=== PATIENT | female | born 1955 | race Caucasian/White ===

== ENCOUNTER 2023-02-26 07:57 | Outpatient (RCR) | payer MEDICARE, SELFPAY ==
[2023-02-24 11:13] LABS: Calcium 8.6 mg/dL (8.5-10.1); Estimated GFR (African America 56 (>=60); Estimated GFR (Non-African Ame 46 (>=60)
[2023-02-26 08:57] VITALS: BP 156/88; PULSE 79; RESP 16; TEMP 38.2; O2SAT 93
[2023-02-26] MEDS: DENOSUMAB 60 MG/ML SYRINGE SQ (09:13)
--- NOTE | 2023-02-26 09:35 | PC.NURSE ---
0857: Pt. to [facility] amb. Seated in recliner. VSS. Pt. given education regarding Prolia. Questions addressed. 0913: Pt medicated with Prolia as directed to right arm. No bleeding to site. Pt. tolerates without c/o. 0935: Pt. without s&s of adverse reaction. D/c'd to home.
== END 2023-03-07 23:59 | disposition home or self-care (01) ==
LOC: INF 07:57
PROVIDERS: PCP Family Medicine; Visit Provider Family Medicine
DX: M81.0 Age-related osteoporosis without current pathological fracture (principal)
CPT/HCPCS: 36415; 82310; 82565; 96372; J0897

== ENCOUNTER 2023-08-20 07:36 | Outpatient (RCR) | payer MEDICARE, SELFPAY ==
[2023-08-19 08:26] LABS: Calcium 8.5 mg/dL (8.5-10.1); Estimated GFR (African America >60 (>=60); Estimated GFR (Non-African Ame 53 (>=60)
[2023-08-20 09:55] VITALS: BP 161/89; PULSE 72; RESP 18; O2SAT 98
[2023-08-20] MEDS: DENOSUMAB 60 MG/ML SYRINGE SUBQ (09:56)
--- NOTE | 2023-08-20 10:10 | PC.NURSE ---
Pt is here for prolia injection. vitals obtained and stable, she denies any complaints today. She tolerated injection well without complications and was discharged ambulatory.
== END 2023-08-20 10:23 | disposition home or self-care (01) ==
LOC: INF 07:36
PROVIDERS: PCP Family Medicine; Visit Provider Family Medicine
DX: M81.0 Age-related osteoporosis without current pathological fracture (principal)
CPT/HCPCS: 36415; 82310; 82565; 96372; J0897

== ENCOUNTER 2023-09-25 08:19 | Outpatient (OUT) | payer MEDICARE, SELFPAY ==
--- OUTSIDE RECORDS SUMMARY | 2023-09-25 08:25 | XMS_ITS | CCD ---
Author Organization [facility] Care Team Providers Care Assistive Technology Trainer Name Role Phone OLGA ., DR ISRAEL Primary Care Unavailable HOY ., DR ISRAEL Admitting Unavailable HOY ., DR ISRAEL Attending Unavailable HOY ., DR ISRAEL Consulting Unavailable ZIEBER, DR RUFINO Holcomb Consulting Unavailable HOY ., DR ISRAEL Primary Care Unavailable HOY ., DR ISRAEL Admitting Unavailable HOY ., DR ISRAEL Attending Unavailable HOY ., DR ISRAEL Consulting Unavailable Problems Problem Classification Problem Date Documented Da te Episodic/Chronic Deficiency and other anemia (1 source) Anemia, unspecified; Translations: [ANEMIA UNSPECIFIED] Onset: 07-28-2022 Episodic Diabetes mellitus without complication (1 source) Other abnormal glucose; Translations: [OTHER ABNORMAL GLUCOSE] Onset: 07-28-2022 Episodic Disorders of lipid metabolism (5 sources) Pure hypercholesterolemi a, unspecified; Translations: [Hyperlipidemia, unspecified] Onset: 07-28-2022 Chronic Headache; including migraine (5 sources) Migraine, unspecified, not intractable, without status migrainosus; Translations: [MIGRAINE UNS NOT INTRACT W/O SM] Onset: 07-24-2022 Chronic Osteoporosis (1 source) Age-related osteoporosis without current pathological fracture; Translations: [AGE-REL OSTEOPOR W/O CURR PATH FX] Onset: 08-03-2022 Chronic Other screening for suspected conditions (not mental disorders or infectious disease) (1 source) Encounter for screening mammogram for malignant neoplasm of breast; Translations: [ENC SCR MAMMO MALIG NEOPLASM BREAST] Onset: 08-03-2022 Episodic Results Test Name Value Interpretation Reference Range Facility MG MAMM SCREEN 3D SHERIE CADon 07-30-2022 MG MAMM SCREEN 3D SHERIE CAD Patient: JASON ROGER. Exam Date: 07/30/2022 : 1955 Gender:F Ordering : DR LINDY ESPINOZA . Admission #: [id number] Family : Order #: [id number] CLICK HERE TO VIEW EXAM RADIOLOGY REPORT PROCEDURE: MAMMOGRAM SCREENING 3D BILATERAL CAD COMPARISON: MG MAMM SHERIE SCRN W CAD DIG, 12/31/2015. INDICATIONS: Screening mammography Calculator Name NCI Breast Cancer Risk Assessment Tool 5 Year Breast Cancer Risk 1.40% Lifetime Breast Cancer Risk 4.80% Personal Breast Cancer No Personal Ovarian Cancer No Treatments None Family Cancers None LOCATION: [facility] BREAST COMPOSITION: Heterogeneously dense,which may obscure small masses. FINDINGS: DIAGNOSTIC CATEGORY 2--BENIGN FINDING: RIGHT BREAST: No significant suspicious finding. No significant change has occurred. LEFT BREAST: No significant suspicious finding. Scattered benign-appearing lymph nodes are present. No significant change has occurred. RECOMMENDATIONS: ROUTINE MAMMOGRAM AND CLINICAL EVALUATION IN 12 MONTHS. PLEASE NOTE: A NORMAL MAMMOGRAM DOES NOT EXCLUDE THE POSSIBILITY OF BREAST CANCER. A CLINICALLY SUSPICIOUS PALPABLE LUMP SHOULD BE BIOPSIED. Dictated by: Rufino Vergara M.D. on 07/31/2022 at 13:30 Approved by: Rufino Vergara M.D. on 07/31/2022 at 13:32 Normal [facility] XR DEXA BONE DENSITYon 07-30 XR DEXA BONE DENSITY EXAMINATION: XR DEX A BONE DENSITY, 07/30/2022 10:52 AM EST HISTORY: Screening for osteoporosis COMPARISON: DEXA bone densitometry 11/15/2019 TECHNIQUE: Dual-energy X-ray absorptiometry (DEXA) bone density study performed for the axial skeleton. FINDINGS: SPINE ANALYSIS: Average bone mineral density is 0.993 g/cm2. T-score (standard deviation relative to young adult mean): -1.7 . +3.2% change since prior study. HIP ANALYSIS: Lowest bone mineral density is within the right femoral neck, 0.697 g/cm2. T-score (standard deviation relative to young adult mean): -2.5 . -1.1% change since prior study. IMPRESSION: World [employer] Classification: Osteoporosis - High Fracture Risk Electronically authenticated by: RUFINO VERGARA Date: 2022-07-30 16:12 Normal [facility] CBC AUTO DIFFon 07-24-2022 BASO # 0.1 103/ul Normal 0.0-0.1 [facility] Comment on above: Performed By: #### C BC #### [facility] [address] [address] [address] Jeri Chase Basophils/100 WBC (Bld) 0.8 % Normal 0.2-2.0 [facility] Comment on above: Performed By: #### C BC #### [facility] [address] [place] [address] Dr. Jeri Chase EO # 0.1 103/ul Normal 0.0-0.7 [facility] Comment on above: Performed By: #### C BC #### [facility] [address] [place] [address] Dr. Jeri Chase Eosinophils/100 WBC (Bld) 2.3 % Normal 0.9-7.0 [facility] Comment on above: Performed By: #### C BC #### [facility] [address] [place] [address] Dr. Jeri Chase Erythrocyte distribution width (RBC) [Ratio] 12.3 % Normal 11.0-15.0 [facility] Comment on above: Performed By: #### C BC #### [facility] [address] [place] [address] Dr. Jeri Chase Hematocrit (Bld) [Volume fraction] 42.3 % Normal 36.0-48.0 [facility] Comment on above: Performed By: #### C BC #### [facility] [address] [place] [address] Dr. Jeri Chase Hemoglobin (Bld) [Mass/Vol] 14.2 g/dL Normal 12.0-16.0 [facility] Comment on above: Performed By: #### C BC #### [facility] [address] [place] [address] Dr. Jeri Chase IG # 0.01 10e3/ul Normal 0.00-0.03 [facility] Comment on above: Performed By: #### C BC #### [facility] [address] [place] [address] Dr. Jeri Chase IG % 0.2 % Normal 0.0-0.5 [facility] Comment on above: Performed By: #### C BC #### [facility] [address] [place] [address] Dr. Jeri Chase LYMPH # 2.0 103/ul Normal 1.2-3.8 [facility] Comment on above: Performed By: #### C BC #### [facility] [address] [place] [address] Dr. Jeri Chase Lymphocytes/100 WBC (Bld) 32.8 % Normal 20.5-60.0 [facility] Comment on above: Performed By: #### C BC #### [facility] [address] [place] [address] Dr. Jeri Chase MANUAL DIFF REQ NO Normal [facility] Comment on above: Performed By: #### C BC #### [facility] [address] [place] [address] Dr. Jeri Chase MCH (RBC) [Entitic mass] 30.0 pg Normal 26.7-34.0 [facility] Comment on above: Performed By: #### C BC #### [facility] [address] [place] [address] Dr. Jeri Chase MCHC (RBC) [Mass/Vol] 33.6 g/dL Normal 29.9-35.2 [facility] Comment on above: Performed By: #### C BC #### [facility] [address] [place] [address] Dr. Jeri Chase MCV (RBC) [Entitic vol] 89.2 fL Normal 81.0-99.0 [facility] Comment on above: Performed By: #### C BC #### [facility] [address] [place] [address] Dr. Jeri Chase MONO # 0.6 103/ul Normal 0.3-0.8 [facility] Comment on above: Performed By: #### C BC #### [facility] [address] [place] [address] Dr. Jeri Chase Monocytes/100 WBC (Bld) 9.5 % Normal 1.7-12.0 [facility] Comment on above: Performed By: #### C BC #### [facility] [address] [address] [address] Jeri Chase NEUT # 3.4 103/ul Normal 1.4-6.5 [facility] Comment on above: Performed By: #### C BC #### [facility] [address] [place] [address] Dr. Jeri Chase Neutrophils/100 WBC (Bld) 54.4 % Normal 43.0-75.0 [facility] Comment on above: Performed By: #### C BC #### [facility] [address] [place] [address] Dr. Jeri Chase Platelet mean volume (Bld) [Entitic vol] 10.5 fL Normal 9.5-13.5 [facility] Comment on above: Performed By: #### C BC #### [facility] [address] [place] [address] Dr. Jeri Chase PLT 226 103/ul Normal 150-450 [facility] Comment on above: Performed By: #### C BC #### [facility] [address] [place] [address] Dr. Jeri Chase RBC 4.74 106/ul Normal 4.20-5.40 [facility] Comment on above: Performed By: #### C BC #### [facility] [address] [place] [address] Dr. Jeri Chase WBC 6.2 103/ul Normal 4.0-11.0 [facility] Comment on above: Performed By: #### C BC #### [facility] [address] [place] [address] Dr. Jeri Chase FREE THYROXINE INDEX T7on FTI 1.97 Normal 1.30-4.50 [facility] Comment on above: Performed By: #### L IPID, CMP, TSH, T7 #### [facility] [address] [place] [address] Dr. Jeri Chase T3U 29.0 % Critically low 30.0-39.0 [facility] Comment on above: Performed By: #### L IPID, CMP, TSH, T7 #### [facility] [address] [address] [address] Jeri Chase T4 [Mass/Vol] 6.80 ug/dL Normal 4.80-13.90 [facility] Comment on above: Performed By: #### L IPID, CMP, TSH, T7 #### [facility] [address] [address] [address] Jeri Chase GLYCOHEMOGLOBIN A1Con 2022 ADA RECOMMENDATION SEE BELOW Normal [facility] Comment on above: Result Comment: ADA RECOMMENDED LIMIT 4.0 - 6.0 ADA THERAPEUTIC TARGET < 7.0 ACTION SUGGESTED > 7.0 Performed By: #### A 1C #### [facility] [address] [address] [address] Jeri Chase Glucose [Mass/Vol] 108 mg/dL Normal [facility] Comment on above: Performed By: #### A 1C #### [facility] [address] [place] [address] Dr. Jeri Chase HbA1c (Bld) [Mass fraction] 5.4 % Normal 4.5-6.2 [facility] Comment on above: Performed By: #### A 1C #### [facility] [address] [address] [address] Jeri Chase IRONon 07-24-2022 Iron [Mass/Vol] 197.0 ug/dL Critically high 50.0-170.0 [facility] Comment on above: Performed By: #### I RAOUL #### [facility] [address] [place] [address] Dr. Jeri Chase LIPID PROFILEon 07-24-2022 CHOL-HDL RATIO NORM SEE BELOW Normal [facility] Comment on above: Result Comment: 3.3 - 4.4 LOW RISK 4.4 - 7.1 AVERAGE RISK 7.1 - 11.0 MODERATE RISK >11.0 HIGH RISK Performed By: #### L IPID, CMP, TSH, T7 #### [facility] [address] [place] [address] Dr. Jeri Chase Cholesterol [Mass/Vol] 214 mg/dL Critically high <=200 [facility] Comment on above: Performed By: #### L IPID, CMP, TSH, T7 #### [facility] [address] [address] [address] Jeri Chase Cholesterol in HDL [Mass/Vol] 44 mg/dL Normal 40-60 [facility] Comment on above: Performed By: #### L IPID, CMP, TSH, T7 #### [facility] [address] [address] [address] Jeri Chase Cholesterol in LDL [Mass/Vol] 106.4 mg/dL Normal [facility] Comment on above: Performed By: #### L IPID, CMP, TSH, T7 #### [facility] [address] [address] [address] Jeri Chase Cholesterol.total/Cho lesterol in HDL [Mass ratio] 4.9 {ratio} Normal [facility] Comment on above: Performed By: #### L IPID, CMP, TSH, T7 #### [facility] [address] [address] [address] Jeri Chase HDL NORMAL > or = 60 mg/dl - LO W CARDIOVASCULAR RISK <40 mg/dl - HIGH CARDIOVASCULAR RISK Normal [facility] Comment on above: Performed By: #### L IPID, CMP, TSH, T7 #### [facility] [address] [address] [address] Jeri Chase LDL CALC NORMAL SEE BELOW Normal [facility] Comment on above: Result Comment: <100 mg/dl OPTIMAL 100 - 129 mg/dl NEAR OR ABOVE OPTIMAL 130 - 159 mg/dl BORDERLINE HIGH 160 - 189 mg/dl HIGH >190 mg/dl VERY HIGH Performed By: #### L IPID, CMP, TSH, T7 #### [facility] [address] [address] [address] Jeri Chase Triglyceride [Mass/Vol] 318 mg/dL Critically high <=150 [facility] Comment on above: Performed By: #### L IPID, CMP, TSH, T7 #### [facility] [address] [address] [address] Jeri Chase VLDL CALC 63.6 mg/dL Normal [facility] Comment on above: Performed By: #### L IPID, CMP, TSH, T7 #### [facility] [address] [place] [address] Dr. Jeri Chase PROF 14(COMP METB)on 023 Albumin [Mass/Vol] 3.9 g/dL Normal 3.4-5.0 [facility] Comment on above: Performed By: #### L IPID, CMP, TSH, T7 #### [facility] [address] [place] [address] Dr. Jeri Chase Albumin/Globulin [Mass ratio] 1.1 {ratio} Normal [facility] Comment on above: Performed By: #### L IPID, CMP, TSH, T7 #### [facility] [address] [place] [address] Dr. Jeri Chase ALP [Catalytic activity/Vol] 137 U/L Critically high 46-116 [facility] Comment on above: Performed By: #### L IPID, CMP, TSH, T7 #### [facility] [address] [place] [address] Dr. Jeri Chase ALT [Catalytic activity/Vol] 53 U/L Normal 14-59 [facility] Comment on above: Performed By: #### L IPID, CMP, TSH, T7 #### [facility] [address] [place] [address] Dr. Jeri Chase Anion gap [Moles/Vol] 10.5 mmol/L Normal [facility] Comment on above: Performed By: #### L IPID, CMP, TSH, T7 #### [facility] [address] [place] [address] Dr. Jeri Chase AST [Catalytic activity/Vol] 27 U/L Normal 15-37 [facility] Comment on above: Performed By: #### L IPID, CMP, TSH, T7 #### [facility] [address] [place] [address] Dr. Jeri Chase Bilirubin [Mass/Vol] 0.4 mg/dL Normal 0.2-1.0 [facility] Comment on above: Performed By: #### L IPID, CMP, TSH, T7 #### [facility] [address] [address] [address] Jeri Chase Calcium [Mass/Vol] 8.7 mg/dL Normal 8.5-10.1 [facility] Comment on above: Performed By: #### L IPID, CMP, TSH, T7 #### [facility] [address] [address] [address] Jeri Chase Chloride [Moles/Vol] 106 mmol/L Normal 98-107 [facility] Comment on above: Performed By: #### L IPID, CMP, TSH, T7 #### [facility] [address] [address] [address] Jeri Chase CO2 [Moles/Vol] 30.6 mmol/L Normal 21.0-32.0 [facility] Comment on above: Performed By: #### L IPID, CMP, TSH, T7 #### [facility] [address] [place] [address] Dr. Jeri Chase Creatinine [Mass/Vol] 0.76 mg/dL Normal 0.55-1.02 [facility] Comment on above: Performed By: #### L IPID, CMP, TSH, T7 #### [facility] [address] [address] [address] Jeri Chase EGFR-AF GUYANESE >60 Normal >=60 [facility] Comment on above: Performed By: #### L IPID, CMP, TSH, T7 #### [facility] [address] [address] [address] Jeri Chase EGFR-NON AF GUYANESE >60 Normal >=60 [facility] Comment on above: Performed By: #### L IPID, CMP, TSH, T7 #### [facility] [address] [address] [address] Jeri Chase Globulin (S) [Mass/Vol] 3.5 g/dL Normal [facility] Comment on above: Performed By: #### L IPID, CMP, TSH, T7 #### [facility] [address] [address] [address] Jeri Chase Glucose [Mass/Vol] 102 mg/dL Normal 74-106 [facility] Comment on above: Performed By: #### L IPID, CMP, TSH, T7 #### [facility] [address] [address] [address] Jeri Chase Potassium [Moles/Vol] 4.1 mmol/L Normal 3.5-5.1 [facility] Comment on above: Performed By: #### L IPID, CMP, TSH, T7 #### [facility] [address] [address] [address] Jeri Chase Protein [Mass/Vol] 7.4 g/dL Normal 6.4-8.2 [facility] Comment on above: Performed By: #### L IPID, CMP, TSH, T7 #### [facility] [address] [place] [address] Dr. Jeri Chase Sodium [Moles/Vol] 143 mmol/L Normal 136-145 [facility] Comment on above: Performed By: #### L IPID, CMP, TSH, T7 #### [facility] [address] [address] [address] Jeri Chase Urea nitrogen [Mass/Vol] 6.0 mg/dL Critically low 7.0-18.0 [facility] Comment on above: Performed By: #### L IPID, CMP, TSH, T7 #### [facility] [address] [place] [address] Dr. Jeri Chase Urea nitrogen/Creatinine [Mass ratio] 7.9 mg/mg Normal [facility] Comment on above: Performed By: #### L IPID, CMP, TSH, T7 #### [facility] [address] [place] [address] Dr. Jeri Chase TSHon 07-24-2022 TSH 2.266 uIU/mL Normal 0.358-3.740 [facility] Comment on above: Performed By: #### L IPID, CMP, TSH, T7 #### [facility] [address] [place] [address] Dr. Jeri Chase Encounters Encounter Date Encounter Type Care Provider Facility Start: 07-30-2022 End: 07-31-[address] LINDY ESPINOZA . Facility[facility] Start: 07-24-2022 End: 07-25-[address] LINDY ESPINOZA . Facility[facility] Payers Date Payer Category Payer Unknown [id number] 1960 Unknown [id number] 1955 Unknown [id number] 1955 Unknown [id number] Summary Purpose Family History No Family History Records Found Advance Directives No Advanced Directives Records Found Additional Source Comments INFORMATION SOURCE (unrecogn ized section and content) DATE CREATED AUTHOR 10/23/2022 [facility] FOR RECORDS PERTAINING TO PATIENTS WHO ARE OR HAVE BEEN ENROLLED IN A CHEMICAL DEPENDENCY/SUBSTANCEABUSE PROGRAM, SOME INFORMATION MAY BE OMITTED. This clinical summary was aggregated from multiple sources. Caution should be exercised in using it in the provision of clinical care. This summary normalizes information from multiple sources, and as a consequence, information in this document may materially change the coding, format and clinical context of patient data. In addition, data may be omitted in some cases. CLINICAL DECISIONS SHOULD BE BASED ON THE PRIMARY CLINICAL RECORDS. [facility] [employer] provides no warranty or guarantee of the accuracy or completeness of information in this document.
[2023-09-25 08:37] LABS: Basophils Absolute Auto 0.1 10^3/uL (0.0-0.1); Basophils Percent Auto 0.9 % (0.2-2.0); Eosinophils Absolute Auto 0.2 10^3/uL (0.0-0.7); Eosinophils Percent Auto 4.2 % (0.9-7.0); Hematocrit 42.6 % (36.0-48.0); Hemoglobin 14.1 g/dL (12.0-16.0); Immature Granulocytes Abs Auto 0.01 10^3/uL (0.00-0.03); Immature Granulocytes Pct Auto 0.2 % (0.0-0.5); Lymphocytes Absolute Auto 2.1 10^3/uL (1.2-3.8); Lymphocytes Percent Auto 39.4 % (20.5-60.0); Mean Corpuscular HGB Conc 33.1 g/dL (29.9-35.2); Mean Corpuscular Hemoglobin 30.6 pg (26.7-34.0); Mean Corpuscular Volume 92.4 fL (81.0-99.0); Mean Platelet Volume 10.8 fL (9.5-13.5); Monocytes Absolute Auto 0.7 10^3/uL (0.3-0.8); Monocytes Percent Auto 12.5 % (1.7-12.0); Neutrophils Absolute Auto 2.3 10^3/uL (1.4-6.5); Neutrophils Percent Auto 42.8 % (43.0-75.0); Platelet Count 219 10^3/uL (150-450); Red Blood Count 4.61 10^6/uL (4.20-5.40); Red Cell Distribution Width 11.9 % (11.0-15.0); White Blood Count 5.3 10^3/uL (4.0-11.0)
[2023-09-25 09:21] LABS: Estimated Average Glucose 103 mg/dL; Glycohemoglobin A1C 5.2 % (4.5-6.2)
[2023-09-25 09:39] LABS: Alanine Aminotransferase 91 U/L (14-59); Albumin Globulin Ratio 1.1; Albumin Level 3.7 g/dL (3.4-5.0); Alkaline Phosphatase 84 U/L (46-116); Anion Gap 10.6; Aspartate Amino Transferase 69 U/L (15-37); BUN Creatinine Ratio 12.2; Bilirubin Total 0.4 mg/dL (0.2-1.0); Calcium 8.7 mg/dL (8.5-10.1); Carbon Dioxide 28.3 mmol/L (21.0-32.0); Chloride 108 mmol/L (98-107); Chol HDL Ratio 3.8; Cholesterol 216 mg/dL (<=200); Estimated GFR (African America >60 (>=60); Estimated GFR (Non-African Ame 56 (>=60); Globulin 3.4 g/dL; Glucose 100 mg/dL (74-106); HDL Cholesterol 57 mg/dL (40-60); Potassium 3.9 mmol/L (3.5-5.1); Sodium 143 mmol/L (136-145); Thyroid Stimulating Hormone 1.732 uIU/mL (0.358-3.740); Total Protein 7.1 g/dL (6.4-8.2); Triglycerides 94 mg/dL (<=150); VLDL CHOLESTEROL 18.8 mg/dL
[2023-09-25 10:57] LABS: Free T4 0.85 ng/dL (0.76-1.46)
== END 2023-09-25 08:20 | disposition home or self-care (01) ==
LOC: LAB 08:19
PROVIDERS: PCP Family Medicine; Visit Provider Family Medicine
DX: E78.00 Pure hypercholesterolemia, unspecified (principal); G43.909 Migraine, unspecified, not intractable, without status migrainosus; F32.9 Major depressive disorder, single episode, unspecified; K57.92 Diverticulitis of intestine, part unspecified, without perforation or abscess without bleeding
CPT/HCPCS: 36415; 80053; 80061; 82306; 83036; 84439; 84443; 84481; 85025

== ENCOUNTER 2023-10-06 11:21 | Outpatient (OUT) | payer MEDICARE, SELFPAY ==
[2023-10-06 12:00] LABS: Alanine Aminotransferase 74 U/L (14-59); Albumin Globulin Ratio 1.2; Albumin Level 3.8 g/dL (3.4-5.0); Alkaline Phosphatase 88 U/L (46-116); Anion Gap 12.7; Aspartate Amino Transferase 51 U/L (15-37); Bilirubin Total 0.5 mg/dL (0.2-1.0); Calcium 9.4 mg/dL (8.5-10.1); Carbon Dioxide 26.2 mmol/L (21.0-32.0); Chloride 107 mmol/L (98-107); Estimated GFR (African America >60 (>=60); Estimated GFR (Non-African Ame >60 (>=60); Globulin 3.3 g/dL; Glucose 104 mg/dL (74-106); Potassium 3.9 mmol/L (3.5-5.1); Sodium 142 mmol/L (136-145); Total Protein 7.1 g/dL (6.4-8.2)
[2023-10-07 05:09] LABS: HBsAg Screen Negative (Negative); HCV Ab Non Reactive (Non Reactive); Hep A Ab, IgM Negative (Negative); Hep B Core Ab, IgM Negative (Negative)
== END 2023-10-06 11:22 | disposition home or self-care (01) ==
LOC: LAB 11:21
PROVIDERS: PCP Family Medicine; Visit Provider Family Medicine
DX: R74.8 Abnormal levels of other serum enzymes (principal)
CPT/HCPCS: 36415; 80053; 80074

== ENCOUNTER 2023-10-20 08:52 | Outpatient (OUT) | payer MEDICARE, SELFPAY ==
--- NOTE | 2023-10-20 08:55 | US_ITS ---
The [address] [address] Patient Name: JASON ROGER MRN: [id number] date: 1955 Sex: F Assigned Patient Location: [place] Current Patient Location: [place] Accession/Order Number: [id number] Exam Date: 10/20/2023 08:59 Report Date: 10/20/2023 11:53 At the request of: LINDY ESPINOZA Procedure: US right upper quadrant EXAMINATION: US right upper quadrant HISTORY: Elevated Liver Enzymes R74.8 COMPARISON: No relevant comparison available. TECHNIQUE: Transabdominal evaluation of the right upper quadrant. FINDINGS: LIVER: 1.5 cm cyst within right hepatic lobe. Small area adjacent the gallbladder fossa favoring an area of fatty sparing. Mildly increased echogenicity of the liver suggestive of fatty infiltration. Color Doppler demonstrates patent hepatic veins. PORTAL VEIN: Duplex Doppler demonstrates normal hepatopetal flow pattern with flow velocity averaging 29 cm/s. GALLBLADDER: No visible gallstones, wall thickening, or pericholecystic free fluid. Negative sonographic Moody's sign. BILIARY: No abnormal dilation or stones. Common bile duct diameter is within normal limits. PANCREASE: No visible mass, abnormal atrophy, or duct dilation. KIDNEY: No hydronephrosis. No visible mass or stones. Size: 8.4 x 4.7 x 4.7 cm. US/US right upper quadrant IMPRESSION: 1. Suspect mild fatty infiltration of the liver. No suspicious findings. Electronically authenticated by: MIKE LEVI Date: 10/20/2023 11:53
--- OUTSIDE RECORDS SUMMARY | 2023-10-20 09:10 | XMS_ITS | CCD ---
Author Organization [facility] Care Team Providers Care Teacher Of The Emotionally Disturbed Name Role Phone OLGA ., DR ISRAEL [...] : DR LINDY ESPINOZA . Admission #: [id number] Family : Order #: [id number] CLICK HERE TO VIEW EXAM RADIOLOGY REPORT PROCEDURE: MAMMOGRAM SCREENING 3D BILATERAL CAD COMPARISON: MG MAMM SHERIE SCRN W CAD DIG, 12/31/2015. INDICATIONS: Screening mammography Calculator Name NCI Breast Cancer Risk Assessment Tool 5 Year Breast Cancer Risk 1.40% Lifetime Breast Cancer Risk 4.80% Personal Breast Cancer No Personal Ovarian Cancer No Treatments None Family Cancers None LOCATION: [facility] BREAST COMPOSITION: Heterogeneously dense,which may obscure [...] Vergara M.D. on 07/31/2022 at 13:32 Normal [facility] XR DEXA BONE DENSITYon 07-30 XR DEXA [...] by: RUFINO VERGARA Date: 2022-07-30 16:12 Normal [facility] CBC AUTO DIFFon 07-24-2022 BASO # 0.1 103/ul Normal 0.0-0.1 [facility] Comment on above: Performed By: #### C BC #### [facility] [address] [address] [address] Jeri Chase Basophils/100 WBC (Bld) 0.8 % Normal 0.2-2.0 [facility] Comment on above: Performed By: #### C BC #### [facility] [address] [place] [address] Dr. Jeri Chase EO # 0.1 103/ul Normal 0.0-0.7 [facility] Comment on above: Performed By: #### C BC #### [facility] [address] [place] [address] Dr. Jeri Chase Eosinophils/100 WBC (Bld) 2.3 % Normal 0.9-7.0 [facility] Comment on above: Performed By: #### C BC #### [facility] [address] [place] [address] Dr. Jeri Chase Erythrocyte distribution width (RBC) [Ratio] 12.3 % Normal 11.0-15.0 [facility] Comment on above: Performed By: #### C BC #### [facility] [address] [place] [address] Dr. Jeri Chase Hematocrit (Bld) [Volume fraction] 42.3 % Normal 36.0-48.0 [facility] Comment on above: Performed By: #### C BC #### [facility] [address] [place] [address] Dr. Jeri Chase Hemoglobin (Bld) [Mass/Vol] 14.2 g/dL Normal 12.0-16.0 [facility] Comment on above: Performed By: #### C BC #### [facility] [address] [place] [address] Dr. Jeri Chase IG # 0.01 10e3/ul Normal 0.00-0.03 [facility] Comment on above: Performed By: #### C BC #### [facility] [address] [place] [address] Dr. Jeri Chase IG % 0.2 % Normal 0.0-0.5 [facility] Comment on above: Performed By: #### C BC #### [facility] [address] [place] [address] Dr. Jeri Chase LYMPH # 2.0 103/ul Normal 1.2-3.8 [facility] Comment on above: Performed By: #### C BC #### [facility] [address] [place] [address] Dr. Jeri Chase Lymphocytes/100 WBC (Bld) 32.8 % Normal 20.5-60.0 [facility] Comment on above: Performed By: #### C BC #### [facility] [address] [place] [address] Dr. Jeri Chase MANUAL DIFF REQ NO Normal [facility] Comment on above: Performed By: #### C BC #### [facility] [address] [place] [address] Dr. Jeri Chase MCH (RBC) [Entitic mass] 30.0 pg Normal 26.7-34.0 [facility] Comment on above: Performed By: #### C BC #### [facility] [address] [place] [address] Dr. Jeri Chase MCHC (RBC) [Mass/Vol] 33.6 g/dL Normal 29.9-35.2 [facility] Comment on above: Performed By: #### C BC #### [facility] [address] [place] [address] Dr. Jeri Chase MCV (RBC) [Entitic vol] 89.2 fL Normal 81.0-99.0 [facility] Comment on above: Performed By: #### C BC #### [facility] [address] [place] [address] Dr. Jeri Chase MONO # 0.6 103/ul Normal 0.3-0.8 [facility] Comment on above: Performed By: #### C BC #### [facility] [address] [place] [address] Dr. Jeri Chase Monocytes/100 WBC (Bld) 9.5 % Normal 1.7-12.0 [facility] Comment on above: Performed By: #### C BC #### [facility] [address] [address] [address] Jeri Chase NEUT # 3.4 103/ul Normal 1.4-6.5 [facility] Comment on above: Performed By: #### C BC #### [facility] [address] [place] [address] Dr. Jeri Chase Neutrophils/100 WBC (Bld) 54.4 % Normal 43.0-75.0 [facility] Comment on above: Performed By: #### C BC #### [facility] [address] [place] [address] Dr. Jeri Chase Platelet mean volume (Bld) [Entitic vol] 10.5 fL Normal 9.5-13.5 [facility] Comment on above: Performed By: #### C BC #### [facility] [address] [place] [address] Dr. Jeri Chase PLT 226 103/ul Normal 150-450 [facility] Comment on above: Performed By: #### C BC #### [facility] [address] [place] [address] Dr. Jeri Chase RBC 4.74 106/ul Normal 4.20-5.40 [facility] Comment on above: Performed By: #### C BC #### [facility] [address] [place] [address] Dr. Jeri Chase WBC 6.2 103/ul Normal 4.0-11.0 [facility] Comment on above: Performed By: #### C BC #### [facility] [address] [place] [address] Dr. Jeri Chase FREE THYROXINE INDEX T7on FTI 1.97 Normal 1.30-4.50 [facility] Comment on above: Performed By: #### L IPID, CMP, TSH, T7 #### [facility] [address] [place] [address] Dr. Jeri Chase T3U 29.0 % Critically low 30.0-39.0 [facility] Comment on above: Performed By: #### L IPID, CMP, TSH, T7 #### [facility] [address] [address] [address] Jeri Chase T4 [Mass/Vol] 6.80 ug/dL Normal 4.80-13.90 [facility] Comment on above: Performed By: #### L IPID, CMP, TSH, T7 #### [facility] [address] [address] [address] Jeri Chase GLYCOHEMOGLOBIN A1Con 2022 ADA RECOMMENDATION SEE BELOW Normal [facility] Comment on above: Result Comment: ADA RECOMMENDED LIMIT 4.0 - 6.0 ADA THERAPEUTIC TARGET < 7.0 ACTION SUGGESTED > 7.0 Performed By: #### A 1C #### [facility] [address] [address] [address] Jeri Chase Glucose [Mass/Vol] 108 mg/dL Normal [facility] Comment on above: Performed By: #### A 1C #### [facility] [address] [place] [address] Dr. Jeri Chase HbA1c (Bld) [Mass fraction] 5.4 % Normal 4.5-6.2 [facility] Comment on above: Performed By: #### A 1C #### [facility] [address] [address] [address] Jeri Chase IRONon 07-24-2022 Iron [Mass/Vol] 197.0 ug/dL Critically high 50.0-170.0 [facility] Comment on above: Performed By: #### I RAOUL #### [facility] [address] [place] [address] Dr. Jeri Chase LIPID PROFILEon 07-24-2022 CHOL-HDL RATIO NORM SEE BELOW Normal [facility] Comment on above: Result Comment: 3.3 - 4.4 LOW RISK 4.4 - 7.1 AVERAGE RISK 7.1 - 11.0 MODERATE RISK >11.0 HIGH RISK Performed By: #### L IPID, CMP, TSH, T7 #### [facility] [address] [place] [address] Dr. Jeri Chase Cholesterol [Mass/Vol] 214 mg/dL Critically high <=200 [facility] Comment on above: Performed By: #### L IPID, CMP, TSH, T7 #### [facility] [address] [address] [address] Jeri Chase Cholesterol in HDL [Mass/Vol] 44 mg/dL Normal 40-60 [facility] Comment on above: Performed By: #### L IPID, CMP, TSH, T7 #### [facility] [address] [address] [address] Jeri Chase Cholesterol in LDL [Mass/Vol] 106.4 mg/dL Normal [facility] Comment on above: Performed By: #### L IPID, CMP, TSH, T7 #### [facility] [address] [address] [address] Jeri Chase Cholesterol.total/Cho lesterol in HDL [Mass ratio] 4.9 {ratio} Normal [facility] Comment on above: Performed By: #### L IPID, CMP, TSH, T7 #### [facility] [address] [address] [address] Jeri Chase HDL NORMAL > or = 60 mg/dl - LO W CARDIOVASCULAR RISK <40 mg/dl - HIGH CARDIOVASCULAR RISK Normal [facility] Comment on above: Performed By: #### L IPID, CMP, TSH, T7 #### [facility] [address] [address] [address] Jeri Chase LDL CALC NORMAL SEE BELOW Normal [facility] Comment on above: Result Comment: <100 mg/dl OPTIMAL 100 - 129 mg/dl NEAR OR ABOVE OPTIMAL 130 - 159 mg/dl BORDERLINE HIGH 160 - 189 mg/dl HIGH >190 mg/dl VERY HIGH Performed By: #### L IPID, CMP, TSH, T7 #### [facility] [address] [address] [address] Jeri Chase Triglyceride [Mass/Vol] 318 mg/dL Critically high <=150 [facility] Comment on above: Performed By: #### L IPID, CMP, TSH, T7 #### [facility] [address] [address] [address] Jeri Chase VLDL CALC 63.6 mg/dL Normal [facility] Comment on above: Performed By: #### L IPID, CMP, TSH, T7 #### [facility] [address] [place] [address] Dr. Jeri Chase PROF 14(COMP METB)on 023 Albumin [Mass/Vol] 3.9 g/dL Normal 3.4-5.0 [facility] Comment on above: Performed By: #### L IPID, CMP, TSH, T7 #### [facility] [address] [place] [address] Dr. Jeri Chase Albumin/Globulin [Mass ratio] 1.1 {ratio} Normal [facility] Comment on above: Performed By: #### L IPID, CMP, TSH, T7 #### [facility] [address] [place] [address] Dr. Jeri Chase ALP [Catalytic activity/Vol] 137 U/L Critically high 46-116 [facility] Comment on above: Performed By: #### L IPID, CMP, TSH, T7 #### [facility] [address] [place] [address] Dr. Jeri Chase ALT [Catalytic activity/Vol] 53 U/L Normal 14-59 [facility] Comment on above: Performed By: #### L IPID, CMP, TSH, T7 #### [facility] [address] [place] [address] Dr. Jeri Chase Anion gap [Moles/Vol] 10.5 mmol/L Normal [facility] Comment on above: Performed By: #### L IPID, CMP, TSH, T7 #### [facility] [address] [place] [address] Dr. Jeri Chase AST [Catalytic activity/Vol] 27 U/L Normal 15-37 [facility] Comment on above: Performed By: #### L IPID, CMP, TSH, T7 #### [facility] [address] [place] [address] Dr. Jeri Chase Bilirubin [Mass/Vol] 0.4 mg/dL Normal 0.2-1.0 [facility] Comment on above: Performed By: #### L IPID, CMP, TSH, T7 #### [facility] [address] [address] [address] Jeri Chase Calcium [Mass/Vol] 8.7 mg/dL Normal 8.5-10.1 [facility] Comment on above: Performed By: #### L IPID, CMP, TSH, T7 #### [facility] [address] [address] [address] Jeri Chase Chloride [Moles/Vol] 106 mmol/L Normal 98-107 [facility] Comment on above: Performed By: #### L IPID, CMP, TSH, T7 #### [facility] [address] [address] [address] Jeri Chase CO2 [Moles/Vol] 30.6 mmol/L Normal 21.0-32.0 [facility] Comment on above: Performed By: #### L IPID, CMP, TSH, T7 #### [facility] [address] [place] [address] Dr. Jeri Chase Creatinine [Mass/Vol] 0.76 mg/dL Normal 0.55-1.02 [facility] Comment on above: Performed By: #### L IPID, CMP, TSH, T7 #### [facility] [address] [address] [address] Jeri Chase EGFR-AF SAO TOMEAN >60 Normal >=60 [facility] Comment on above: Performed By: #### L IPID, CMP, TSH, T7 #### [facility] [address] [address] [address] Jeri Cahse EGFR-NON AF SAO TOMEAN >60 Normal >=60 [facility] Comment on above: Performed By: #### L IPID, CMP, TSH, T7 #### [facility] [address] [address] [address] Jeri Chase Globulin (S) [Mass/Vol] 3.5 g/dL Normal [facility] Comment on above: Performed By: #### L IPID, CMP, TSH, T7 #### [facility] [address] [address] [address] Jeri Chase Glucose [Mass/Vol] 102 mg/dL Normal 74-106 [facility] Comment on above: Performed By: #### L IPID, CMP, TSH, T7 #### [facility] [address] [address] [address] Jeri Chase Potassium [Moles/Vol] 4.1 mmol/L Normal 3.5-5.1 [facility] Comment on above: Performed By: #### L IPID, CMP, TSH, T7 #### [facility] [address] [address] [address] Jeri Chase Protein [Mass/Vol] 7.4 g/dL Normal 6.4-8.2 [facility] Comment on above: Performed By: #### L IPID, CMP, TSH, T7 #### [facility] [address] [place] [address] Dr. Jeri Chase Sodium [Moles/Vol] 143 mmol/L Normal 136-145 [facility] Comment on above: Performed By: #### L IPID, CMP, TSH, T7 #### [facility] [address] [address] [address] Jeri Chase Urea nitrogen [Mass/Vol] 6.0 mg/dL Critically low 7.0-18.0 [facility] Comment on above: Performed By: #### L IPID, CMP, TSH, T7 #### [facility] [address] [place] [address] Dr. Jeri Chase Urea nitrogen/Creatinine [Mass ratio] 7.9 mg/mg Normal [facility] Comment on above: Performed By: #### L IPID, CMP, TSH, T7 #### [facility] [address] [place] [address] Dr. Jeri Chase TSHon 07-24-2022 TSH 2.266 uIU/mL Normal 0.358-3.740 [facility] Comment on above: Performed By: #### L IPID, CMP, TSH, T7 #### [facility] [address] [place] [address] Dr. Jeri Chase Encounters Encounter Date Encounter Type Care Provider Facility Start: 07-30-2022 End: 07-31-[address] LINDY ESPINOZA . Facility[facility] Start: 07-24-2022 End: 07-25-[address] LINDY ESPINOZA . Facility[facility] Payers Date Payer Category Payer Unknown [id number] 1960 Unknown [id number] 1955 Unknown [id number] 1955 Unknown [id number] Summary Purpose Family History No Family History Records Found Advance Directives No Advanced Directives Records Found Additional Source Comments INFORMATION SOURCE (unrecogn ized section and content) DATE CREATED AUTHOR [facility]/23/2022 [facility]ERTAIN[facility] TO PATIENTS WHO ARE [...] BE BASED ON THE PRIMARY CLINICAL RECORDS. [facility] [employer] provides no warranty or guarantee of the accuracy or completeness of information in this document.
== END 2023-10-20 08:53 | disposition home or self-care (01) ==
LOC: US 08:52
PROVIDERS: PCP Family Medicine; Visit Provider Family Medicine
DX: R74.8 Abnormal levels of other serum enzymes (principal)
CPT/HCPCS: 76705

== ENCOUNTER 2024-03-18 07:30 | Outpatient (RCR) | payer MEDICARE, SELFPAY ==
[2024-03-18 09:14] LABS: Calcium 9.1 mg/dL (8.5-10.1); Estimated GFR (African America >60 (>=60 mL/min/1.73m^2); Estimated GFR (Non-African Ame 53 (>=60 mL/min/1.73m^2)
[2024-03-18] MEDS: DENOSUMAB 60 MG/ML SYRINGE SQ (09:41)
[2024-03-18 10:31] VITALS: BP 149/79; PULSE 63; TEMP 36.6; O2SAT 98
== END 2024-04-07 12:12 | disposition home or self-care (01) ==
LOC: LAB 07:30
PROVIDERS: PCP Family Medicine; Visit Provider Family Medicine
DX: M81.0 Age-related osteoporosis without current pathological fracture (principal)
CPT/HCPCS: 36415; 82310; 82565; 96372; J0897

== ENCOUNTER 2024-11-18 11:07 | Outpatient (OUT) | payer MEDICARE, SELFPAY ==
--- OUTSIDE RECORDS SUMMARY | 2024-11-18 11:16 | XMS_ITS | CCD ---
Author Organization [facility] Care Team Providers Care [employer] Test Grader Name Role Phone OLGA ., DR ISRAEL Primary Care Unavailable CARMINAY ., DR ISRAEL Admitting Unavailable HOY ., DR ISRAEL Attending Unavailable HOY ., DR ISRAEL Consulting Unavailable GURMEET, DR RUFINO Holcomb Consulting Unavailable HOY ., DR ISRAEL Primary Care Unavailable HOY ., DR ISRAEL Admitting Unavailable HOY ., DR ISRAEL Attending Unavailable OLGA ., DR ISRAEL Consulting Unavailable Lindy Espinoza Primary Care Physician Cipriano SMALL Attending Unavailable Allergies Allergy Classification Reported Allergen(s) Allergy Type Date of Onset Reaction(s) Facility (1 source) No Known Medication Allergies; Translations: [No Known Medication Allergies] Propensity to adverse reactions (disorder) [facility] Repository Medications Current Medications Medication Drug Class(es) Dates Sig (Normalized) Sig (Original) ALPRAZolam 0.25 mg oral tablet (1 source) Benzodiazepine Start: 12-24-2023 take 1 tablet by mouth three times daily as needed for anxiety alprazolam 0.25 mg Tab 0.25 mg = 1 tab(s), Oral, TID, PRN as needed for anxiety, Refills(s) 0 Start Date: 12/24/23 Status: Ordered aspirin 325 mg delayed release oral tablet (1 source) Platelet Aggregation Inhibitor, Nonsteroidal Anti-inflammatory Drug Start: 12-24-2023 take 1 tablet by mouth once daily aspirin 325 mg Oral EC Tab 325 mg = 1 tab(s), Oral, Daily, Refills(s) 0 Start Date: 12/24/23 Status: Ordered 1 ml denosumab 60 mg/ml prefilled syringe (1 source) RANK Ligand Inhibitor Start: 12-24-2023 Prolia 60 mg/mL subcutaneous solution 60 mg, SubCutaneous, q6mo, Refills(s) 0 Start Date: 12/24/23 Status: Ordered escitalopram 10 mg oral tablet (1 source) Serotonin Reuptake Inhibitor Start: 12-24-2023 take 1 tablet by mouth once daily Lexapro 10 mg Tab 10 mg = 1 tab(s), Oral, Daily, Refills(s) 0 Start Date: 12/24/23 Status: Ordered fenofibrate 48 mg oral tablet (1 source) Peroxisome Proliferator Receptor alpha Agonist Start: 12-24-2023 take 1 tablet by mouth once daily fenofibrate 48 mg Tab 48 mg = 1 tab(s), Oral, Daily, Refills(s) 0 Start Date: 12/24/23 Status: Ordered lisinopril 10 mg oral tablet (1 source) Angiotensin Converting Enzyme Inhibitor Start: 12-24-2023 take 1 tablet by mouth once daily lisinopril 10 mg Tab 10 mg = 1 tab(s), Oral, Daily, Refills(s) 0 Start Date: 12/24/23 Status: Ordered Multi Vitamins oral tablet (1 source) Start: 12-24-2023 take 1 tablet by mouth once daily Multi Vitamins oral tablet 1 tab(s), Oral, Daily, Refill(s) 0 Start Date: 12/24/23 Status: Ordered pravastatin sodium 20 mg oral tablet (1 source) HMG-CoA Reductase Inhibitor Start: 12-24-2023 take 1 tablet by mouth once daily pravastatin 20 mg Tab 20 mg = 1 tab(s), Oral, Daily, Refills(s) 0 Start Date: 12/24/23 Status: Ordered Problems Problem Classification Problem Date Documented Da te Episodic/Chronic Anxiety disorders (1 source) Mixed anxiety and depressive disorder 12-24-2023 Chronic Coagulation and hemorrhagic disorders (1 source) Factor V Leiden mutation 12-24-2023 Chronic Deficiency and other anemia (1 source) Anemia, unspecified; Translations: [ANEMIA UNSPECIFIED] Onset: 07-28-2022 Episodic Deficiency and other anemia (1 source) Anemia 12-24-2023 Episodic Diabetes mellitus without complication (1 source) Other abnormal glucose; Translations: [OTHER ABNORMAL GLUCOSE] Onset: 07-28-2022 Episodic Disorders of lipid metabolism (6 sources) Pure hypercholesterolemi a, unspecified; Translations: [Hyperlipidemia, unspecified] Onset: 07-28-2022 Chronic Essential hypertension (1 source) Hypertensive disorder 12-24-2023 Chronic Headache; including migraine (6 sources) Migraine, unspecified, not intractable, without status migrainosus; Translations: [Migraine] Onset: 07-24-2022 Chronic Osteoporosis (2 sources) Age-related osteoporosis without current pathological fracture; Translations: [Senile osteoporosis] Onset: 08-03-2022 12-24-2023 Chronic Other liver diseases (1 source) Steatosis of liver 12-24-2023 Chronic Other nutritional; endocrine; and metabolic disorders (1 source) Overweight 12-24-2023 Episodic Other nutritional; endocrine; and metabolic disorders (1 source) Overweight in adulthood with body mass index of 25 or more but less than 30 01-27-2024 Episodic Other screening for suspected conditions (not mental disorders or infectious disease) (1 source) Encounter for screening mammogram for malignant neoplasm of breast; Translations: [ENC SCR MAMMO MALIG NEOPLASM BREAST] Onset: 08-03-2022 Episodic Other skin disorders (1 source) Senile hyperkeratosis; Translations: [Other seborrheic keratosis] Onset: 01-27-2024 Episodic Residual codes; unclassified (1 source) Insomnia 12-24-2023 Episodic Unclassified (1 source) Seborrheic keratosis 01-27-2024 Results Test Name Value Interpretation Reference Range Facility Ambulatory Visit Summaryon 0 01-27-2024 Ambulatory Visit Summary Ambulatory Visit Summary JASON ROGER :1955 Visit Date:01/27/2024 Ambulatory Visit Instructions Your Care Team Attending Physician - Cipriano SMALL MD Primary Care Physician - Lindy Espinoza MD This Is Your Medications List alprazolam (alprazolam 0.25 mg Tab) aspirin (aspirin 325 mg Oral EC Tab) denosumab (Prolia 60 mg/mL subcutaneous solution) escitalopram (Lexapro 10 mg Tab) fenofibrate (fenofibrate 48 mg Tab) lisinopril (lisinopril 10 mg Tab) multivitamin (Multi Vitamins oral tablet) pravastatin (pravastatin 20 mg Tab) Procedures Performed Rotator cuff repair, GEOVANNI BSO - Total abdominal hysterectomy and bilateral salpingo-oophorectomy. Discharge Vitals Heart Rate (Peripheral) 76 Respiratory Rate 16 Blood Pressure 118/82 Height 167.6 cm Height 66 in Weight 73.6 kg Weight 161.92 lb BMI 26.2 Medications What How Much When Instructions Unchanged alprazolam (alprazolam 0.25 mg Tab) 1 Tablets By Mouth 3 times a day as needed for as needed for anxiety Unchanged aspirin (aspirin 325 mg Oral EC Tab) 1 Tablets By Mouth Every day Unchanged denosumab (Prolia 60 mg/ mL subcutaneous solution) 60 Milligram Subcutaneous Every 6 months Unchanged escitalopram (Lexapro 10 mg Tab) 1 Tablets By Mouth Every day Unchanged fenofibrate (fenofibrate 48 mg Tab) 1 Tablets By Mouth Every day Unchanged lisinopril (lisinopril 10 mg Tab) 1 Tablets By Mouth Every day Unchanged multivitamin (Multi Vitamins oral tablet) 1 Tablets By Mouth Every day Unchanged pravastatin (pravastatin 20 mg Tab) 1 Tablets By Mouth Every day Allergies No Known Allergies No Known Medication Allergies Problems Ongoing - Any problem that you are currently receiving treatment for. Anemia BMI 26.0-26.9,adult Factor V Leiden mutation Hypertension Insomnia Migraine Mixed anxiety and depressive disorder Overweight Pure hypercholesterolemia Senile osteoporosis Steatosis of liver Patient Survey You may receive a survey via text or e-mail asking about your office visit. Please share your experience with us by completing your survey. We appreciate your feedback and thank you for choosing us for your care. Normal [facility] MG MAMM SCREEN 3D SHERIE CADon 07-30-2022 MG MAMM SCREEN 3D SHERIE CAD Patient: JASON ROGER Exam Date: 07/30/2022 : 1955 Gender:F Ordering : DR LINDY ESPINOZA . Admission #: [id number] Family : Order #: [id number] CLICK HERE TO VIEW EXAM RADIOLOGY REPORT PROCEDURE: MAMMOGRAM SCREENING 3D BILATERAL CAD COMPARISON: MG MAMM SHERIE SCRN W CAD DIG, 12/31/2015. INDICATIONS: Screening mammography Calculator Name NCI Breast Cancer Risk Assessment Tool 5 Year Breast Cancer Risk 1.40% Lifetime Breast Cancer Risk 4.80% Personal Breast Cancer No Personal Ovarian Cancer No Treatments None Family Cancers None LOCATION: [facility] BREAST COMPOSITION: Heterogeneously dense,which may [...] Vergara M.D. on 07/31/2022 at 13:32 Normal [facility] XR DEXA BONE DENSITYon 07-30 XR DEXA [...] by: RUFINO VERGARA Date: 2022-07-30 16:12 Normal [facility] CBC AUTO DIFFon 07-24-2022 BASO # 0.1 103/ul Normal 0.0-0.1 [facility] Comment on above: Performed By: #### C BC #### [facility] [address] [place] [address] Dr. Jeri Chase Basophils/100 WBC (Bld) 0.8 % Normal 0.2-2.0 [facility] Comment on above: Performed By: #### C BC #### [facility] [address] [place] [address] Dr. Jeri Chase EO # 0.1 103/ul Normal 0.0-0.7 [facility] Comment on above: Performed By: #### C BC #### [facility] [address] [place] [address] Dr. Jeri Chase Eosinophils/100 WBC (Bld) 2.3 % Normal 0.9-7.0 [facility] Comment on above: Performed By: #### C BC #### [facility] [address] [place] [address] Dr. Jeri Chase Erythrocyte distribution width (RBC) [Ratio] 12.3 % Normal 11.0-15.0 [facility] Comment on above: Performed By: #### C BC #### [facility] [address] [place] [address] Dr. Jeri Chase Hematocrit (Bld) [Volume fraction] 42.3 % Normal 36.0-48.0 [facility] Comment on above: Performed By: #### C BC #### [facility] [address] [place] [address] Dr. Jeri Chase Hemoglobin (Bld) [Mass/Vol] 14.2 g/dL Normal 12.0-16.0 [facility] Comment on above: Performed By: #### C BC #### [facility] [address] [place] [address] Dr. Jeri Chase IG # 0.01 10e3/ul Normal 0.00-0.03 [facility] Comment on above: Performed By: #### C BC #### [facility] [address] [place] [address] Dr. Jeri Chase IG % 0.2 % Normal 0.0-0.5 [facility] Comment on above: Performed By: #### C BC #### [facility] [address] [place] [address] Dr. Jeri Chase LYMPH # 2.0 103/ul Normal 1.2-3.8 [facility] Comment on above: Performed By: #### C BC #### [facility] [address] [place] [address] Dr. Jeri Chase Lymphocytes/100 WBC (Bld) 32.8 % Normal 20.5-60.0 [facility] Comment on above: Performed By: #### C BC #### [facility] [address] [place] [address] Dr. Jeir Chase MANUAL DIFF REQ NO Normal [facility] Comment on above: Performed By: #### C BC #### [facility] [address] [place] [address] Dr. Jeri Chase MCH (RBC) [Entitic mass] 30.0 pg Normal 26.7-34.0 [facility] Comment on above: Performed By: #### C BC #### [facility] [address] [place] [address] Dr. Jeri Chase MCHC (RBC) [Mass/Vol] 33.6 g/dL Normal 29.9-35.2 [facility] Comment on above: Performed By: #### C BC #### [facility] [address] [place] [address] Dr. Jeri Chase MCV (RBC) [Entitic vol] 89.2 fL Normal 81.0-99.0 [facility] Comment on above: Performed By: #### C BC #### [facility] [address] [place] [address] Dr. Jeri Chase MONO # 0.6 103/ul Normal 0.3-0.8 [facility] Comment on above: Performed By: #### C BC #### [facility] [address] [place] [address] Dr. Jeri Chase Monocytes/100 WBC (Bld) 9.5 % Normal 1.7-12.0 [facility] Comment on above: Performed By: #### C BC #### [facility] [address] [place] [address] Dr. Jeri Chase NEUT # 3.4 103/ul Normal 1.4-6.5 [facility] Comment on above: Performed By: #### C BC #### [facility] [address] [place] [address] Dr. Jeri Chase Neutrophils/100 WBC (Bld) 54.4 % Normal 43.0-75.0 [facility] Comment on above: Performed By: #### C BC #### [facility] [address] [place] [address] Dr. Jeri Chase Platelet mean volume (Bld) [Entitic vol] 10.5 fL Normal 9.5-13.5 [facility] Comment on above: Performed By: #### C BC #### [facility] [address] [address] [address] Jeri Chase PLT 226 103/ul Normal 150-450 [facility] Comment on above: Performed By: #### C BC #### [facility] [address] [address] [address] Jeri Chase RBC 4.74 106/ul Normal 4.20-5.40 [facility] Comment on above: Performed By: #### C BC #### [facility] [address] [address] [address] Jeri Chase WBC 6.2 103/ul Normal 4.0-11.0 [facility] Comment on above: Performed By: #### C BC #### [facility] [address] [place] [address] Dr. Jeri Chase FREE THYROXINE INDEX T7on FTI 1.97 Normal 1.30-4.50 [facility] Comment on above: Performed By: #### L IPID, CMP, TSH, T7 #### [facility] [address] [place] [address] Dr. Jeri Chase T3U 29.0 % Critically low 30.0-39.0 [facility] Comment on above: Performed By: #### L IPID, CMP, TSH, T7 #### [facility] [address] [place] [address] Dr. Jeri Chase T4 [Mass/Vol] 6.80 ug/dL Normal 4.80-13.90 [facility] Comment on above: Performed By: #### L IPID, CMP, TSH, T7 #### [facility] [address] [place] [address] Dr. Jeri Chase GLYCOHEMOGLOBIN A1Con 2022 ADA RECOMMENDATION SEE BELOW Normal [facility] Comment on above: Result Comment: ADA RECOMMENDED LIMIT 4.0 - 6.0 ADA THERAPEUTIC TARGET < 7.0 ACTION SUGGESTED > 7.0 Performed By: #### A 1C #### [facility] [address] [address] [address] Jeri Chase Glucose [Mass/Vol] 108 mg/dL Normal [facility] Comment on above: Performed By: #### A 1C #### [facility] [address] [place] [address] Dr. Jeri Chase HbA1c (Bld) [Mass fraction] 5.4 % Normal 4.5-6.2 [facility] Comment on above: Performed By: #### A 1C #### [facility] [address] [place] [address] Dr. Jeri Chase IRONon 07-24-2022 Iron [Mass/Vol] 197.0 ug/dL Critically high 50.0-170.0 [facility] Comment on above: Performed By: #### I RAOUL #### [facility] [address] [place] [address] Dr. Jeri Chase LIPID PROFILEon 07-24-2022 CHOL-HDL RATIO NORM SEE BELOW Normal [facility] Comment on above: Result Comment: 3.3 - 4.4 LOW RISK 4.4 - 7.1 AVERAGE RISK 7.1 - 11.0 MODERATE RISK >11.0 HIGH RISK Performed By: #### L IPID, CMP, TSH, T7 #### [facility] [address] [place] [address] Dr. Jeri Chase Cholesterol [Mass/Vol] 214 mg/dL Critically high <=200 [facility] Comment on above: Performed By: #### L IPID, CMP, TSH, T7 #### [facility] [address] [address] [address] Jeri Chase Cholesterol in HDL [Mass/Vol] 44 mg/dL Normal 40-60 [facility] Comment on above: Performed By: #### L IPID, CMP, TSH, T7 #### [facility] [address] [address] [address] Jeri Chase Cholesterol in LDL [Mass/Vol] 106.4 mg/dL Normal [facility] Comment on above: Performed By: #### L IPID, CMP, TSH, T7 #### [facility] [address] [address] [address] Jeri Chase Cholesterol.total/Ch olesterol in HDL [Mass ratio] 4.9 {ratio} Normal [facility] Comment on above: Performed By: #### L IPID, CMP, TSH, T7 #### [facility] [address] [address] [address] Jeri Chase HDL NORMAL > or = 60 mg/dl - LO W CARDIOVASCULAR RISK <40 mg/dl - HIGH CARDIOVASCULAR RISK Normal [facility] Comment on above: Performed By: #### L IPID, CMP, TSH, T7 #### [facility] [address] [address] [address] Jeri Chase LDL CALC NORMAL SEE BELOW Normal [facility] Comment on above: Result Comment: <100 mg/dl OPTIMAL 100 - 129 mg/dl NEAR OR ABOVE OPTIMAL 130 - 159 mg/dl BORDERLINE HIGH 160 - 189 mg/dl HIGH >190 mg/dl VERY HIGH Performed By: #### L IPID, CMP, TSH, T7 #### [facility] [address] [address] [address] Jeri Chase Triglyceride [Mass/Vol] 318 mg/dL Critically high <=150 [facility] Comment on above: Performed By: #### L IPID, CMP, TSH, T7 #### [facility] [address] [address] [address] Jeri Chase VLDL CALC 63.6 mg/dL Normal [facility] Comment on above: Performed By: #### L IPID, CMP, TSH, T7 #### [facility] [address] [address] [address] Jeri Chase PROF 14(COMP METB)on 023 Albumin [Mass/Vol] 3.9 g/dL Normal 3.4-5.0 [facility] Comment on above: Performed By: #### L IPID, CMP, TSH, T7 #### [facility] [address] [address] [address] Jeri Chase Albumin/Globulin [Mass ratio] 1.1 {ratio} Normal [facility] Comment on above: Performed By: #### L IPID, CMP, TSH, T7 #### [facility] [address] [address] [address] Jeri Chase ALP [Catalytic activity/Vol] 137 U/L Critically high 46-116 [facility] Comment on above: Performed By: #### L IPID, CMP, TSH, T7 #### [facility] [address] [address] [address] Jeri Chase ALT [Catalytic activity/Vol] 53 U/L Normal 14-59 [facility] Comment on above: Performed By: #### L IPID, CMP, TSH, T7 #### [facility] [address] [address] [address] Jeri Chase Anion gap [Moles/Vol] 10.5 mmol/L Normal [facility] Comment on above: Performed By: #### L IPID, CMP, TSH, T7 #### [facility] [address] [place] [address] Dr. Jeri Chase AST [Catalytic activity/Vol] 27 U/L Normal 15-37 [facility] Comment on above: Performed By: #### L IPID, CMP, TSH, T7 #### [facility] [address] [address] [address] Jeri Chase Bilirubin [Mass/Vol] 0.4 mg/dL Normal 0.2-1.0 [facility] Comment on above: Performed By: #### L IPID, CMP, TSH, T7 #### [facility] [address] [address] [address] Jeri Chase Calcium [Mass/Vol] 8.7 mg/dL Normal 8.5-10.1 [facility] Comment on above: Performed By: #### L IPID, CMP, TSH, T7 #### [facility] [address] [address] [address] Jeri Chase Chloride [Moles/Vol] 106 mmol/L Normal 98-107 [facility] Comment on above: Performed By: #### L IPID, CMP, TSH, T7 #### [facility] [address] [address] [address] Jeri Chase CO2 [Moles/Vol] 30.6 mmol/L Normal 21.0-32.0 [facility] Comment on above: Performed By: #### L IPID, CMP, TSH, T7 #### [facility] [address] [place] [address] Dr. Jeri Chase Creatinine [Mass/Vol] 0.76 mg/dL Normal 0.55-1.02 [facility] Comment on above: Performed By: #### L IPID, CMP, TSH, T7 #### [facility] [address] [address] [address] Jeri Chase EGFR-AF AUSTRALIAN >60 Normal >=60 [facility] Comment on above: Performed By: #### L IPID, CMP, TSH, T7 #### [facility] [address] [place] [address] Dr. Jeri Chase EGFR-NON AF AUSTRALIAN >60 Normal >=60 [facility] Comment on above: Performed By: #### L IPID, CMP, TSH, T7 #### [facility] [address] [place] [address] Dr. Jeri Chase Globulin (S) [Mass/Vol] 3.5 g/dL Normal [facility] Comment on above: Performed By: #### L IPID, CMP, TSH, T7 #### [facility] [address] [place] [address] Dr. Jeri Chase Glucose [Mass/Vol] 102 mg/dL Normal 74-106 [facility] Comment on above: Performed By: #### L IPID, CMP, TSH, T7 #### [facility] [address] [place] [address] Dr. Jeri Chase Potassium [Moles/Vol] 4.1 mmol/L Normal 3.5-5.1 [facility] Comment on above: Performed By: #### L IPID, CMP, TSH, T7 #### [facility] [address] [place] [address] Dr. Jrei Chase Protein [Mass/Vol] 7.4 g/dL Normal 6.4-8.2 [facility] Comment on above: Performed By: #### L IPID, CMP, TSH, T7 #### [facility] [address] [place], [place] [address] Dr. Jeri Chase Sodium [Moles/Vol] 143 mmol/L Normal 136-145 [facility] Comment on above: Performed By: #### L IPID, CMP, TSH, T7 #### [facility] [address] [address] [address] Jeri Chase Urea nitrogen [Mass/Vol] 6.0 mg/dL Critically low 7.0-18.0 [facility] Comment on above: Performed By: #### L IPID, CMP, TSH, T7 #### [facility] [address] [address] [address] Jeri Chase Urea nitrogen/Creatinine [Mass ratio] 7.9 mg/mg Normal [facility] Comment on above: Performed By: #### L IPID, CMP, TSH, T7 #### [facility] [address] [address] [address] Jeri Chase TSHon 07-24-2022 TSH 2.266 uIU/mL Normal 0.358-3.740 [facility] Comment on above: Performed By: #### L IPID, CMP, TSH, T7 #### [facility] [address] [address] [address] Jeri Chase Vital Signs Date Time Vital Sign Value Performing Clinician Carlos varghese 01-27-2024 14:13-0400 Blood Pressure Location Cipriano NILL [facility] 01-27-2024 14:13-0400 Diastolic blood pressure 82 mm[Hg] Cipriano NILL [facility] 01-27-2024 14:13-0400 Heart rate 76 /min Cipriano NILL [facility] 01-27-2024 14:13-0400 Respiratory rate 16 /min Cipriano NILL [facility] 01-27-2024 14:13-0400 Systolic blood pressure 118 mm[Hg] [facility] Encounter Date Encounter Type Care Provider Facility Start: 01-27-2024 End: 01-27-2024 ambulatory Cipriano SMALL Facility: [facility] Start: 01-27-2024 End: 01-27-2024 Patient encounter procedure Cipriano SMALL [facility] Start: 12-17-2023 ambulatory Cipriano SMALL Facility:[facility] Start: 07-30-2022 End: 07-31-[address] LINDY ESPINOZA . Facility: Start: 07-24-2022 End: 07-25-[address] LINDY ESPINOZA . Facility: Procedures Date Procedure Procedure Detail Performing Clinician Repair of musculoten dinous cuff of shoulder Cipriano SMALL Total abdominal hyst erectomy with bilateral salpingo-oophorectomy Cipriano SMALL Payers Date Payer Category Payer Unknown [id number] 1960 Unknown [id number] 1955 Unknown [id number] 1955 Unknown [id number] 1955 Unknown [id number] Social History Date Type Detail Facility Start: 01-27-2024 Tobacco smoking status Ex-smoker (fi nding) [facility] Functional Status Date Assessment Result Facility 01-27-2024 Functional Status N/A [facility] Clinical Note 01-27-2024 Note Date & Type Note Facility 01-27-2024 Note General Surgery Offi ce/Clinic Note Chief Complaint consultation for nevus HPI Staff 68 year old female presents on consultation from Dr. Espinoza for changing nevus left thigh. Reports noting lesion to left upper posterior thigh/buttock area several months ago. She is unsure if this has changed as she is not able to visualize the area. Reports the lesion feels soft and as though it could peel off . History of Present Illness 68 yo female with h/o htn, hyperlipidemia, migraines, referred for left medial upper thigh lesion, recently noticed it; unsure if any changes, no bleeding or pain; no h/o skin cancer. no tobacco use, on regular asa daily. Review of Systems PHQ Score Initial Depression Screen Score: 0 SCORE ROS - Provider Constitutional: no fever, no sweats, no weight loss. Eyes: no glasses, no blurred vision, no visual loss. ENMT: no dentures, no hoarseness, no swallowing difficulties, no hearing loss, no ear infection(s), no nose bleeds. Cardiovascular: normal blood pressure, no chest pain, regular heartbeat, no heart murmur. Respiratory: no shortness of breath, no cough, no asthma, no wheezing. Gastrointestinal: no nausea, no vomiting, no diarrhea, no constipation, no blood in stool, no change in bowel habits, no abdominal pain, no hepatitis. Genitourinary: no kidney stones, no urine infection, no dysuria. Musculoskeletal: no pain, no weakness. Skin: no changing moles, no rash, no skin lumps. Neurologic: no seizures, no epilepsy, no headache. Psychiatric: no emotional or psychiatric problem. Heme/Lymph: no bleeding problems, no anemia, no blood clots, no transfusions. Allergy/Immunologic: no swollen lymph nodes/glands, no IV drug abuse. Other: Additional ROS info: Except as noted in the above Review of Systems and in the History of Present Illness, all other systems have been reviewed and are negative or noncontributory. Physical Exam Vitals & Measurements HR: 76(Peripheral) RR: 16 BP: 118/82 HT: 66 in HT: 167.6 cm WT: 73.6 kg WT: 161.92 lb BMI: 26.2 skin: left upper medial thigh with 5 mm seborrheic keratosis, nontender, no inflammation. Assessment/Plan 1. Seborrheic keratosis (L82.1: Other seborrheic keratosis) recommend observation; if becomes painful/inflamed can remove; does not require excision; call with problems/questions. Follow-up No qualifying data available Problem List/Past Medical History Ongoing Anemia BMI 26.0-26.9,adult Factor V Leiden mutation Hypertension Insomnia Migraine Mixed anxiety and depressive disorder Overweight Pure hypercholesterolemia Seborrheic keratosis Senile osteoporosis Steatosis of liver Historical No qualifying data Procedure/Surgical History Rotator cuff repair, GEOVANNI BSO - Total abdominal hysterectomy and bilateral salpingo-oophorectomy. Medications alprazolam 0.25 mg Tab, 0.25 mg= 1 tab(s), Oral, TID, PRN aspirin 325 mg Oral EC Tab, 325 mg= 1 tab(s), Oral, Daily fenofibrate 48 mg Tab, 48 mg= 1 tab(s), Oral, Daily Lexapro 10 mg Tab, 10 mg= 1 tab(s), Oral, Daily lisinopril 10 mg Tab, 10 mg= 1 tab(s), Oral, Daily Multi Vitamins oral tablet, 1 tab(s), Oral, Daily pravastatin 20 mg Tab, 20 mg= 1 tab(s), Oral, Daily Prolia 60 mg/mL subcutaneous solution, 60 mg, SubCutaneous, q6mo Allergies No Known Allergies No Known Medication Allergies Social History Alcohol Current, 1-2 times per month, 01/27/2024 Substance Abuse - Denies Substance Abuse, 01/27/2024 Tobacco Former smoker, quit more than 30 days ago Tobacco Use:. Never Smokeless Tobacco Use:. Cigarettes, 0.25 per day. Started age 15.0 Years. Stopped age 44 Years., 01/27/2024 Family History Dementia: Mother. Factor 5 Leiden mutation: Brother. Hyperlipidemia: Mother. Hypertension: Brother. [facility] Comment on above: Result Comment: Elec tronically Signed By: GEOVANNY FIGUEROA, Cipriano Landaverde\Date and Time Signed: 01/27/24 20:46 EDT Evaluation + Plan note Note Date & Type Note Facility Evaluation + Plan note No data available for this section [facility] Hospital Discharge instructions Note Date & Type Note Facility Hospital Discharge instructions No data available for this section [facility] Progress note Note Date & Type Note Facility Progress note No data available for this section [facility] Renea Summary Purpose Family History No Family History Records Found No data available for this section No Family History Records Found Advance Directives No Advanced Directives Records FoundNo Advanced Directives Records Found Additional Source Comments INFORMATION SOURCE (unrecogn ized section and content) DATE CREATED AUTHOR 10/23/2022 [facility] DATE CREATED AUTHOR AUTHOR'S ORGANIZ ATION 01/29/2024 [facility] Patient Care team informatio n (unrecognized section and content) Personnel Name: Lindy Espinoza MD Address: Address: [address] [place] [address] FOR RECORDS PERTAINING TO PATIENTS WHO ARE [...] BE BASED ON THE PRIMARY CLINICAL RECORDS. [facility] [employer] [facility]. provides no warranty or guarantee of the accuracy or completeness of information in this document.
[2024-11-18 12:03] LABS: Basophils Absolute Auto 0.1 10^3/uL (0.0-0.1); Basophils Percent Auto 0.9 % (0.2-2.0); Eosinophils Absolute Auto 0.2 10^3/uL (0.0-0.7); Eosinophils Percent Auto 2.6 % (0.9-7.0); Hematocrit 38.5 % (36.0-48.0); Hemoglobin 13.4 g/dL (12.0-16.0); Immature Granulocytes Abs Auto 0.01 10^3/uL (0.00-0.03); Immature Granulocytes Pct Auto 0.2 % (0.0-0.5); Lymphocytes Absolute Auto 2.3 10^3/uL (1.2-3.8); Lymphocytes Percent Auto 40.3 % (20.5-60.0); Mean Corpuscular HGB Conc 34.8 g/dL (29.9-35.2); Mean Corpuscular Hemoglobin 31.5 pg (26.7-34.0); Mean Corpuscular Volume 90.4 fL (81.0-99.0); Mean Platelet Volume 11.2 fL (9.5-13.5); Monocytes Absolute Auto 0.6 10^3/uL (0.3-0.8); Monocytes Percent Auto 10.5 % (1.7-12.0); Neutrophils Absolute Auto 2.6 10^3/uL (1.4-6.5); Neutrophils Percent Auto 45.5 % (43.0-75.0); Platelet Count 190 10^3/uL (150-450); Red Blood Count 4.26 10^6/uL (4.20-5.40); Red Cell Distribution Width 12.1 % (11.0-15.0); White Blood Count 5.7 10^3/uL (4.0-11.0)
[2024-11-18 13:11] LABS: Alanine Aminotransferase 81 U/L (14-59); Albumin Globulin Ratio 1.1; Albumin Level 3.9 g/dL (3.4-5.0); Alkaline Phosphatase 93 U/L (46-116); Anion Gap 16.2; Aspartate Amino Transferase 56 U/L (15-37); BUN Creatinine Ratio 23.3; Bilirubin Total 0.5 mg/dL (0.2-1.0); Calcium 9.3 mg/dL (8.5-10.1); Chloride 107 mmol/L (98-107); Chol HDL Ratio 3.3; Cholesterol 183 mg/dL (<=200); Estimated GFR (African America >60 (>=60 mL/min/1.73m^2); Estimated GFR (Non-African Ame >60 (>=60 mL/min/1.73m^2); Free T3 2.67 pg/mL (2.18-3.98); Globulin 3.4 g/dL; Glucose 102 mg/dL (74-106); HDL Cholesterol 55 mg/dL (40-60); LDL Cholesterol Calculated 101.4 mg/dL; Potassium 4.2 mmol/L (3.5-5.1); Sodium 143 mmol/L (136-145); Thyroid Stimulating Hormone 1.738 uIU/mL (0.358-3.740); Total Protein 7.3 g/dL (6.4-8.2); Triglycerides 133 mg/dL (<=150); VLDL CHOLESTEROL 26.6 mg/dL
[2024-11-18 14:27] LABS: Estimated Average Glucose 105 mg/dL; Glycohemoglobin A1C 5.3 % (4.5-6.2)
[2024-11-19 04:50] LABS: Insulin 23.8 uIU/mL (2.6-24.9)
== END 2024-11-18 11:08 | disposition home or self-care (01) ==
LOC: LAB 11:10
PROVIDERS: PCP Family Medicine; Visit Provider Family Medicine
DX: R73.09 Other abnormal glucose (principal); I10 Essential (primary) hypertension; F32.9 Major depressive disorder, single episode, unspecified; R74.8 Abnormal levels of other serum enzymes; K76.0 Fatty (change of) liver, not elsewhere classified; E78.00 Pure hypercholesterolemia, unspecified; D64.9 Anemia, unspecified; E55.9 Vitamin D deficiency, unspecified
CPT/HCPCS: 36415; 80053; 80061; 82306; 83036; 83525; 83540; 84436; 84443; 84481; 85025

== ENCOUNTER 2024-11-23 09:24 | Outpatient (OUT) | payer MEDICARE, SELFPAY ==
--- OUTSIDE RECORDS SUMMARY | 2024-11-18 06:49 | XMS_ITS ---
Author Organization [facility] [place] Address [address] [place] [address] Care Team Providers Care Supervisor Hot Dip Plating Name Role Phone Marky Connors Primary Care Provider [phone] REASON FOR VISIT needs dexa and prolia Encounters Encounter Location Date Provider Diagnosis [facility] [address] [place] [address] 11/18/2024 Marky Connors Osteopenia M85.8 0 Assessments Encounter Date Diagnosis (ICD Code) Assessment Notes Treatment Notes Treatment Clinical Notes Section Notes 11/18/2024 Osteopenia (ICD-10 - M85.80) Plan Of Treatment Pending Test Test Name Order Date DEXA Axial Skeleton (hips, pelvis, spine )* 11/18/2024 Progress Notes * Ariane ROGER ADOB:[birth year] (68 yo F)Acc No.[id number]:11/18/2024 Patient: Ariane ISIDRO :1955 A ge:68 Y S ex:Female Address:[address] [place] [id number] Subjective: * Chief Complaints: * N eeds dexa and prolia * Medical History: * Surgical History: * Hospitalization/Major Diagno stic Procedure: * Medications: Objective: * Vitals: * Physical Examination: Assessment: * Assessment: 1. O steopenia - M85.80 (Primary) Plan: * Treatment: * Procedure Codes: * true * Date: Generated for Bill veloz/Maia/Jhony on: 0 11/23/2024 09:27 AM EDT
--- OUTSIDE RECORDS SUMMARY | 2024-11-20 08:29 | XMS_ITS ---
Author Organization The [facility] in [place] Address [address] [place] [address] Care Team Providers Care Acidizer Water Well Name Role Phone Marky Connors Primary Care Provider REASON FOR VISIT labs Encounters Encounter Location Date Provider Diagnosis [facility] [address] [place] [address] 11/20/2024 Marky Connors Plan Of Treatment No Information Progress Notes * Ariane ROGER ADOB:[birth year] (68 yo F)Acc No.[id number]:11/20/2024 Patient: Jacque GLENNJACQUELINEAriane VIDES :1955 A ge:68 Y S ex:Female Address:[address] [place] [id number] * true * Date: Generated for Printi ng/Favidhig/eTransmitting on: 0 11/23/2024 09:27 AM EDT
--- OUTSIDE RECORDS SUMMARY | 2024-11-22 05:03 | XMS_ITS ---
Author Organization The [facility] in [place] Address [address] [place] [address] Care Team Providers Care Supervisor Feed Mill Name Role Phone Marky Connors Primary Care Provider [phone] REASON FOR VISIT refill Medications Medication SIG (Take, Route, Fr equency, Duration) Notes Start Date End Date Status Fenofibrate 48 MG 1 tablet Orally Once a day for 90 days Active Encounters Encounter Location Date Provider Diagnosis [facility] [address] [place] [address] 11/22/2024 Marky Connors Plan Of Treatment Medication Medication Name Sig Start Date Stop Date Notes Fenofibrate 48 MG 1 tablet Orally Once a day for 90 days Progress Notes * Ariane ROGER ADOB:[birth year] (68 yo F)Acc No.[id number]:11/22/2024 Patient: Jacque GLENNJACQUELINEPEEWEE Ariane Whitley :1955 A ge:68 Y S ex:Female Address:[address] [place] [address] * Refills Refill Fenofibrate Tablet, 48 MG, 90 Tablet, 1 tablet Orally Once a day, 90 days, Refills=3 * true * Date: Generated for Printi ng/Faxing/eTransmitting on: 0 11/23/2024 09:27 AM EDT
--- NOTE | 2024-11-23 09:27 | MM_ITS ---
Patient Name: JASON ROGER MR#: [id number] : 1955 Exam Date: 11/23/2024 Ordering Doctor: DR LINDY ESPINOZA . RADIOLOGY REPORT PROCEDURE: MM TOMOSYNTHESIS SCREENING BI COMPARISON: MG MAMM SCREEN 3D SHERIE CAD, 07/30/2022. MG MAMM SHERIE SCRN W CAD DIG, 12/31/2015. INDICATIONS: Screening Calculator Name NCI Breast Cancer Risk Assessment Tool 5 Year Breast Cancer Risk 1.40% Lifetime Breast Cancer Risk 4.30% Personal Breast Cancer No Personal Ovarian Cancer No Treatments None Family Cancers None LOCATION: [facility] BREAST COMPOSITION: There are scattered areas of fibroglandular density. FINDINGS: DIAGNOSTIC CATEGORY 1--NEGATIVE. RIGHT BREAST: No significant suspicious finding. LEFT BREAST: No significant suspicious finding. RECOMMENDATIONS: ROUTINE MAMMOGRAM AND CLINICAL EVALUATION IN 12 MONTHS. PLEASE NOTE: A NORMAL MAMMOGRAM DOES NOT EXCLUDE THE POSSIBILITY OF BREAST CANCER. A CLINICALLY SUSPICIOUS PALPABLE LUMP SHOULD BE BIOPSIED. Dictated by: Tony Mccall DO on 11/23/2024 at 16:35 Approved by: Tony Mccall DO on 11/23/2024 at 16:35
--- OUTSIDE RECORDS SUMMARY | 2024-11-23 09:27 | XMS_ITS | Clinical Summary ---
Author Organization [facility] Address [address] [place] [address] Care Team Providers Care Industrial Hygiene Manager Name Role Phone Unavailable Primary Care Provider Unavailabl e Social History Tobacco Use Types Packs/Day Years Used Date Smoking Tobacco: Never Assessed Comments Unknown Sex and Gender Information Value Date Recorded Sex Assigned at Not on file Legal Sex Female 7:05 PM EST Gender Identity Not on file Sexual Orientation Not on file Plan of Treatment Not on file
--- OUTSIDE RECORDS SUMMARY | 2024-11-23 09:27 | XMS_ITS | Patient Health Record ---
Author Organization [facility] in [place] Address [address] [place] [address] Care Team Providers Care Panel Instrument Repairer Name Role Phone Marky Connors Primary Care Provider [phone] Allergies No Known Allergies Results Component Value Reference Range Notes CALCIUM Reviewed date:03/19/2024 09:49:58 PM Interpretation: Performing Lab: Notes/Report: [facility] , Calcium 9.1 8.5-10.1 mg/dL Performing Lab: see note - [facility] LB CREATININE Reviewed date:03/19/2024 09:49:58 PM Interpretation: Performing Lab: Notes/Report: [facility] , Creatinine 1.04 0.55-1.02 mg/dL Estimated GFR ( Mine >60 >=60 mL/min/1.73m 2 Estimated GFR (Non- Yessi 53 >=60 mL/min/1.73m 2 Performing Lab: see note - [facility] LB CBC AUTO DIFF Reviewed date:11/20/2024 12:30:28 PM Interpretation: Performing Lab: Notes/Report: [facility] , White Blood Count 5.7 4.0-11.0 10 3/uL Red Blood Count 4.26 4.20-5.40 10 6/uL Hemoglobin 13.4 12.0-16.0 g/dL Hematocrit 38.5 36.0-48.0 % Mean Corpuscular Volume 90.4 81.0-99.0 fL Mean Corpuscular Hemoglobin 31.5 26.7-34.0 pg Mean Corpuscular HGB Conc 34.8 29.9-35.2 g/dL Red Cell Distribution Width 12.1 11.0-15.0 % Platelet Count 190 150-450 10 3/uL Mean Platelet Volume 11.2 9.5-13.5 fL Neutrophils Percent Auto 45.5 43.0-75.0 % Lymphocytes Percent Auto 40.3 20.5-60.0 % Monocytes Percent Auto 10.5 1.7-12.0 % Eosinophils Percent Auto 2.6 0.9-7.0 % Basophils Percent Auto 0.9 0.2-2.0 % Immature Granulocytes Pct Auto 0.2 0.0-0.5 % Neutrophils Absolute Auto 2.6 1.4-6.5 10 3/uL Lymphocytes Absolute Auto 2.3 1.2-3.8 10 3/uL Monocytes Absolute Auto 0.6 0.3-0.8 10 3/uL Eosinophils Absolute Auto 0.2 0.0-0.7 10 3/uL Basophils Absolute Auto 0.1 0.0-0.1 10 3/uL Immature Granulocytes Abs Auto 0.01 0.00-0.03 10 3/uL Performing Lab: see note ML - [facility] FREE T3 Reviewed date:11/20/2024 12:30:28 PM Interpretation: Performing Lab: Notes/Report: [facility] , Free T3 2.67 2.18-3.98 pg/mL Performing Lab: see note ML - [facility] LB INSULIN Reviewed date:11/20/2024 12:30:28 PM Interpretation: Performing Lab: Notes/Report: [facility] , Insulin 23.8 2.6-24.9 uIU/mL [address], [place] [id number] Painter Set: Ramos Raygoza PhD, Phone: [phone] [facility] Performing Lab: see note - [facility] LB LIPID PROFILE Reviewed date:11/20/2024 12:30:28 PM Interpretation: Performing Lab: Notes/Report: [facility] , Triglycerides 133 <=150 mg/dL Cholesterol 183 <=200 mg/dL HDL Cholesterol 55 40-60 mg/dL > or =60 mg/dl - LOW CARDIOVASCULAR RISK <40 mg/dl - HIGH CARDIOVASCULAR RISK LDL Cholesterol Calculated 101.4 160-189 mg/dl HIGH >190 mg/dl VERY HIGH <100 mg/dl OPTIMAL 130-159 mg/dl BORDERLINE HIGH 100-129 mg/dl NEAR OR ABOVE OPTIMAL VLDL CHOLESTEROL 26.6 Chol HDL Ratio 3.3 4.4 - 7.1 AVERAGE RISK 3.3 - 4.4 LOW RISK 7.1 - 11.0 MODERATE RISK >11.0 HIGH RISK Performing Lab: see note - [facility] LB T4 Reviewed date:11/20/2024 12:30:28 PM Interpretation: Performing Lab: Notes/Report: [facility] , T4 Thyroxine 9.10 4.80-13.90 ug/dL Performing Lab: see note ML - [facility] LB TSH Reviewed date:11/20/2024 12:30:28 PM Interpretation: Performing Lab: Notes/Report: [facility] , Thyroid Stimulating Hormone 1.738 0.358-3.740 u IU/mL Performing Lab: see note - [facility] LB VITAMIN D 25 [place] Reviewed date:11/20/2024 12:30:28 PM Interpretation: Performing Lab: Notes/Report: [facility] , Vitamin D 86.5 30-100 ng/mL Vit D sufficient >100 ng/mL Potential Toxicity 20-<30 ng/mL Vit D insufficient <20 ng/mL Vit D deficient Performing Lab: see note - [facility] LB PROF 14(COMP METB) Reviewed date:11/20/2024 12:30:28 PM Interpretation: Performing Lab: Notes/Report: [facility] , Sodium 143 136-145 mmol/L Potassium 4.2 3.5-5.1 mmol/L Chloride 107 98-107 mmol/L Carbon Dioxide 24.0 21.0-32.0 mmol/L Anion Gap 16.2 Glucose 102 74-106 mg/dL Blood Urea Nitrogen 21.0 7.0-18.0 mg/dL Creatinine 0.90 0.55-1.02 mg/dL Estimated GFR ( Mine >60 >=60 mL/min/1.73m 2 Estimated GFR (Non- Yessi >60 >=60 mL/min/1.73m 2 BUN Creatinine Ratio 23.3 Calcium 9.3 8.5-10.1 mg/dL Bilirubin Total 0.5 0.2-1.0 mg/dL Aspartate Amino Transferase 56 15-37 U/L Alanine Aminotransferase 81 14-59 U/L Alkaline Phosphatase 93 46-116 U/L Total Protein 7.3 6.4-8.2 g/dL Albumin Level 3.9 3.4-5.0 g/dL Globulin 3.4 Albumin Globulin Ratio 1.1 Performing Lab: see note ML - [facility] IRON Reviewed date:11/20/2024 12:30:28 PM Interpretation: Performing Lab: Notes/Report: [facility] , Iron 155.0 50.0-170.0 ug/dL Performing Lab: see note - [facility] GLYCOHEMOGLOBIN A1C Reviewed date:11/20/2024 12:30:28 PM Interpretation: Performing Lab: Notes/Report: [facility] , Glycohemoglobin A1C 5.3 4.5-6.2 % ADA THERAPEUTIC TARGET < 7.0 > 7.0 ADA RECOMMENDED LIMIT 4.0 - 6.0 ACTION SUGGESTED Estimated Average Glucose 105 Performing Lab: see note - [facility] Reason For Referral Diagnosis 1 Nevus (D22.9) Referral Organization [facility] Referring Provider First Name Marky Referring Provider Last Name Dory Referring Provider [facility] Zafar urias Referred Provider Cipriano Butler Referred Provider [facility] leonora Referral Priority Routine Reason ear Diagnosis 1 Nevus (D22.9) Referral Organization [facility] Referring Provider First Name Marky Referring Provider Last Name [facility] Referring Provider [facility] adonay Referred Provider Cipriano Butler Referred Provider [facility] Surg leonora Referral Priority Routine Medications Medication SIG (Take, Route, Frequency, Duration) Notes Start Date End Date Status Irbesartan 150 MG 1 tablet Orally Once a day for 30 days 02/19/2024 Active Aspirin 325 MG 1 tablet Orally Once a day 10/13/19 24 Active Lexapro 10 MG 1 tablet Orally Once a day for 90 days 02/18/2023 Active Fenofibrate 48 MG 1 tablet Orally Once a day for 90 days Active Vitamin D3 50 MCG (1999) 1 capsule Orally Once a day 10/13/2023 Active Calcium Active Pravastatin Sodium 20 MG take 1 tablet b y mouth once daily for 90 Active Multivitamin - 1 tablet Orally Once a day 10/13/19 24 Active Diclofenac Sodium 75 MG 1 tablet as need ed Orally Twice a day 10/13/2023 Active Valium 5 MG 1 tablet Orally william y for 2 days 07/30/2023 Active Prolia 60 MG/ML as directed Subcutaneous Active Immunizations Vaccine Route Administration Date Status Comme nts Flu, Fluad (54104) 65 yrs+, single-dose syringe (4949-9679) IM Intramuscular 03/24/2023 Administered Social History Tobacco Use: Social History Observation Description Date Details (start date - stop date) Former Smoker 06/08/1969 - 06/08/1998 Tobacco Use/Smoking Question Answer Notes Patient is a former smoker When did you start smoking? 06/08/1969 When did you stop smoking? 06/08/1998 Alcohol Screen (Audit-C) Question Answer Notes Did you have a drink contain ing alcohol in the past year? Yes How often did you have 6 or more drinks on one occasion in the past year? Never (0 point) How many drinks did you have on a typical day when you were drinking in the past year? 3 or 4 drinks (1 point) How often did you have a dri nk containing alcohol in the past year? Less than monthly (1 point) Points 2 Interpretation Negative AUDIT-C (Standard) Question Answer Notes Did you have a drink contain ing alcohol in the past year? Yes How often did you have six o r more drinks on one occasion in the past year? Never (0 point) How many drinks did you have on a typical day when you were drinking in the past year? 1 or 2 drinks (0 point) How often did you have a dri nk containing alcohol in the past year? 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 Problem Hypertension (07752455) Hypertension (I10) Active confirmed Problem Carpal tunnel syndro me (75043373) Carpal tunnel syndrome (G56.00) Active confirmed Problem Anxiety (30621568) Anxiety (F41.9) Active confi rmed Problem Depression (733754348) Depressio n (F32.9) Active confirmed Problem Osteopenia (983319913) Osteopeni a (M85.80) Active confirmed Problem Elevated liver enzym es level (704421779) Elevated liver enzymes (R74.8) Active confirmed Problem Diverticulitis (65084420) Diverticulitis (K57.92) Active confirmed Problem Bone density finding (272210810) Oth disrd of bone density and structure, unspecified site (M85.80) Active confirmed Problem Nevus (1301491787) Nevus (D22.9) Active confirm ed Problem Factor 5 Leiden mutation (595994531) Factor V Leiden (D68.51) Active confirmed Problem Fatty liver (355905179) Fatty liver disease, nonalcoholic (K76.0) Active confirmed Problem Migraine (77864932) Headache, migraine (G43.909) Active confirmed Problem Pure hypercholesterolemia (054752899) Elevated cholesterol (E78.00) Active confirmed Problem Mixed anxiety and depressive disorder (987300949) Anxiety and depression (F41.8) Active confirmed Problem Insomnia (125974348) Complaint o f insomnia (G47.00) Active confirmed Problem Disease caused by Severe acute respiratory syndrome coronavirus 2 (disorder) (805359991) COVID (U07.1) Active confirmed Problem Acute left-sided low back pain, unspecified whether sciatica present (M54.50) Active confirmed Vital Signs Blood pressure diastolic 82 mm Hg 11/18/2024 Height 66 in 11/18/2024 Blood pressure systolic 144 mm Hg 11/18/2024 Weight 170.8 lbs 11/18/2024 BMI 27.56 kg/m2 11/18/2024 Encounters Encounter Location Date Provider Diagnosis [facility] [address] [place] [address] 12/16/2023 Marky Hoy Nevus D22.9 ; Fatty liver disease, nonalcoholic K76.0 and Anxiety F41.9 [facility] [address] [place] [address] 11/18/2024 Marky Hoy Hypertension I10 ; Depression F32.9 ; Elevated liver enzymes R74.8 ; Fatty liver disease, nonalcoholic K76.0 ; Elevated cholesterol E78.00 and Nevus D22.9 [facility] [address] [place] [address] 01/21/2024 Marky Dory [facility] [address] [place] [facility] [place] [place] [address] 01/29/2024 Marky jerod [facility] [address] [place] [place] [place] [address] 02/03/2024 Marky Connors Depression F32.9 [facility] [address] [place] [place] [place] [address] 02/19/2024 Marky Connors [facility] [address] [place] [address] 05/18/2024 Marky Connors [facility] [address] [place] [place] [address] 07/25/2024 Marky Connors [facility] [address] [place] [facility] [place] [place] [address] 08/01/2024 Marky Connors [facility] [address] [place] [place] [place] [address] 08/16/2024 Marky Connors [facility] [address] [place] [place] [address] 11/18/2024 Marky Connors Osteopenia M85.80 [facility] [address] [place] [address] 11/20/2024 Marky Connors [facility] [address] [place] [place] [address] 11/22/2024 Marky Connors Assessments Encounter Date Diagnosis (ICD Code) Assessment Notes Treatment Notes Treatment Clinical Notes Section Notes 12/16/2023 Nevus (ICD-10 - D22.9) 12/16/2023 Fatty liver disease, nonalcoholic (ICD-10 - K76.0) 11/18/2024 Hypertension (ICD-10 - I10) 11/18/2024 Depression (ICD-10 - F32.9) 02/03/2024 Depression (ICD-10 - F32.9) 11/18/2024 Osteopenia (ICD-10 - M85.80) 11/18/2024 Elevated liver enzymes (ICD-10 - R74.8) 12/16/2023 Anxiety (ICD-10 - F41.9) 11/18/2024 Fatty liver disease, nonalcoholic (ICD-10 - K76.0) 11/18/2024 Elevated cholesterol (ICD-10 - E78.00) 11/18/2024 Nevus (ICD-10 - D22.9) Plan Of Treatment Pending Test Test Name Order Date CMP (COMPLETE METABOLIC PANEL) HEMOGLOBIN A1C (GLYCO) 11/18/2024 IRON, TOTAL 11/18/2024 LIPID PANEL (CHOL/TRIG/HDL/LDL) 11/19/19 25 VITAMIN D, 25 LEVEL (TOTAL) 11/18/2024 DEXA Axial Skeleton (hips, pelvis, spine )* 11/18/2024 T3 FREE, T4 FREE and TSH 09/22/2023 ACUTE HEPATITIS PANEL 09/27/2023 Insulin Level 11/18/2024 COMPREHENSIVE METABOLIC PROFILE WITH GFR 10/07/2023 COMPREHENSIVE METABOLIC PROFILE WITH GFR 09/27/2023 CBC W/AUTO DIFF 10/07/2023 FREE T3 10/07/2023 FREE T4 10/07/2023 GLYCOHEMOGLOBIN A1C 10/07/2023 US ABD 10/13/2023 THYROID PANEL (T4/TSH/FREE T3) 5 MM screening mammo BI 11/18/2024 MM diagnostic mammo BI 11/18/2024 Vitamin D 09/22/2023 Vitamin D 10/07/2023 Lipid Panel 10/07/2023 Creatinine 08/14/2023 CMP (COMP MET RIZZO) w/eGFR CKD-EPI 2024 CBC WITH DIFF 11/18/2024 Insurance Providers Payer Name Payer Address Payer Phone Subscriber Number Group Number Insured Name Patient Relationship to Insured Coverage Start Date Coverage End Date [employer] ADV PLAN [address] [place] [address] [phone] [id number] Ariane Garcia Self - patient is the insured Medical (General) History Medical History History ICD Code COVID CARPAL TUNNEL OSTEOPENIA DIVERTICULITIS FACTOR V LEIDEN HYPERCHOLESTEROLEMIA ANXIETY / DEPRESSION INSOMNIA MIGRAINE H/A Surgical History Surgery Date(Month/Year) ROTATOR CUFF REPAIR 05/2009 GEOVANNI and [facility]IO
--- OUTSIDE RECORDS SUMMARY | 2024-11-23 09:31 | XMS_ITS | CCD ---
Author Organization [facility] Care Team Providers Care Steel Burner Name Role Phone OLGA ., DR ISRAEL [...] Medication Allergies] Propensity to adverse reactions (disorder) [facility] Repository Medications Current Medications Medication Drug [...] for choosing us for your care. Normal [facility] MG MAMM SCREEN 3D SHERIE CADon 07-30-2022 MG MAMM SCREEN 3D SHERIE CAD Patient: JASON ROGER Exam Date: 07/30/2022 : 1955 Gender:F Ordering : DR LINDY ESPINOZA . Admission #: [id number] Family : Order #: [id number] CLICK HERE TO VIEW EXAM RADIOLOGY REPORT PROCEDURE: MAMMOGRAM SCREENING 3D BILATERAL CAD COMPARISON: MG MAMM SHERIE SCRN W CAD DIG, 12/31/2015. INDICATIONS: Screening mammography Calculator Name NCI Breast Cancer Risk Assessment Tool 5 Year Breast Cancer Risk 1.40% Lifetime Breast Cancer Risk 4.80% Personal Breast Cancer No Personal Ovarian Cancer No Treatments None Family Cancers None LOCATION: [facility] BREAST COMPOSITION: Heterogeneously dense,which may obscure small [...] Vergara M.D. on 07/31/2022 at 13:32 Normal [facility] XR DEXA BONE DENSITYon 07-30 XR DEXA [...] by: RUFINO VERGARA Date: 2022-07-30 16:12 Normal [facility] CBC AUTO DIFFon 07-24-2022 BASO # 0.1 103/ul Normal 0.0-0.1 [facility] Comment on above: Performed By: #### C BC #### [facility] [address] [place] [address] Dr. Jeri Chase Basophils/100 WBC (Bld) 0.8 % Normal 0.2-2.0 [facility] Comment on above: Performed By: #### C BC #### [facility] [address] [place] [address] Dr. Jeri Chase EO # 0.1 103/ul Normal 0.0-0.7 [facility] Comment on above: Performed By: #### C BC #### [facility] [address] [place] [address] Dr. Jeri Chase Eosinophils/100 WBC (Bld) 2.3 % Normal 0.9-7.0 [facility] Comment on above: Performed By: #### C BC #### [facility] [address] [place] [address] Dr. Jeri Chase Erythrocyte distribution width (RBC) [Ratio] 12.3 % Normal 11.0-15.0 [facility] Comment on above: Performed By: #### C BC #### [facility] [address] [place] [address] Dr. Jeri Chase Hematocrit (Bld) [Volume fraction] 42.3 % Normal 36.0-48.0 [facility] Comment on above: Performed By: #### C BC #### [facility] [address] [place] [address] Dr. Jeri Chase Hemoglobin (Bld) [Mass/Vol] 14.2 g/dL Normal 12.0-16.0 [facility] Comment on above: Performed By: #### C BC #### [facility] [address] [place] [address] Dr. Jeri Chase IG # 0.01 10e3/ul Normal 0.00-0.03 [facility] Comment on above: Performed By: #### C BC #### [facility] [address] [place] [address] Dr. Jeri Chase IG % 0.2 % Normal 0.0-0.5 [facility] Comment on above: Performed By: #### C BC #### [facility] [address] [place] [address] Dr. Jeri Chase LYMPH # 2.0 103/ul Normal 1.2-3.8 [facility] Comment on above: Performed By: #### C BC #### [facility] [address] [place] [address] Dr. Jeri Chase Lymphocytes/100 WBC (Bld) 32.8 % Normal 20.5-60.0 [facility] Comment on above: Performed By: #### C BC #### [facility] [address] [place] [address] Dr. Jeri Chase MANUAL DIFF REQ NO Normal [facility] Comment on above: Performed By: #### C BC #### [facility] [address] [place] [address] Dr. Jeri Chase MCH (RBC) [Entitic mass] 30.0 pg Normal 26.7-34.0 [facility] Comment on above: Performed By: #### C BC #### [facility] [address] [place] [address] Dr. Jeri Chase MCHC (RBC) [Mass/Vol] 33.6 g/dL Normal 29.9-35.2 [facility] Comment on above: Performed By: #### C BC #### [facility] [address] [place] [address] Dr. Jeri Chase MCV (RBC) [Entitic vol] 89.2 fL Normal 81.0-99.0 [facility] Comment on above: Performed By: #### C BC #### [facility] [address] [place] [address] Dr. Jeri Chase MONO # 0.6 103/ul Normal 0.3-0.8 [facility] Comment on above: Performed By: #### C BC #### [facility] [address] [place] [address] Dr. Jeri Chase Monocytes/100 WBC (Bld) 9.5 % Normal 1.7-12.0 [facility] Comment on above: Performed By: #### C BC #### [facility] [address] [place] [address] Dr. Jeri Chase NEUT # 3.4 103/ul Normal 1.4-6.5 [facility] Comment on above: Performed By: #### C BC #### [facility] [address] [place] [address] Dr. Jeri Chase Neutrophils/100 WBC (Bld) 54.4 % Normal 43.0-75.0 [facility] Comment on above: Performed By: #### C BC #### [facility] [address] [place] [address] Dr. Jeri Chase Platelet mean volume (Bld) [Entitic vol] 10.5 fL Normal 9.5-13.5 [facility] Comment on above: Performed By: #### C BC #### [facility] [address] [address] [address] Jeri Chase PLT 226 103/ul Normal 150-450 [facility] Comment on above: Performed By: #### C BC #### [facility] [address] [address] [address] Jeri Chase RBC 4.74 106/ul Normal 4.20-5.40 [facility] Comment on above: Performed By: #### C BC #### [facility] [address] [address] [address] Jeri Chase WBC 6.2 103/ul Normal 4.0-11.0 [facility] Comment on above: Performed By: #### C BC #### [facility] [address] [place] [address] Dr. Jeri Chase FREE THYROXINE INDEX T7on FTI 1.97 Normal 1.30-4.50 [facility] Comment on above: Performed By: #### L IPID, CMP, TSH, T7 #### [facility] [address] [place] [address] Dr. Jeri Chase T3U 29.0 % Critically low 30.0-39.0 [facility] Comment on above: Performed By: #### L IPID, CMP, TSH, T7 #### [facility] [address] [place] [address] Dr. Jeri Chase T4 [Mass/Vol] 6.80 ug/dL Normal 4.80-13.90 [facility] Comment on above: Performed By: #### L IPID, CMP, TSH, T7 #### [facility] [address] [place] [address] Dr. Jeri Chase GLYCOHEMOGLOBIN A1Con 2022 ADA RECOMMENDATION SEE BELOW Normal [facility] Comment on above: Result Comment: ADA RECOMMENDED LIMIT 4.0 - 6.0 ADA THERAPEUTIC TARGET < 7.0 ACTION SUGGESTED > 7.0 Performed By: #### A 1C #### [facility] [address] [address] [address] Jeri Chase Glucose [Mass/Vol] 108 mg/dL Normal [facility] Comment on above: Performed By: #### A 1C #### [facility] [address] [place] [address] Dr. Jeri Chase HbA1c (Bld) [Mass fraction] 5.4 % Normal 4.5-6.2 [facility] Comment on above: Performed By: #### A 1C #### [facility] [address] [place] [address] Dr. Jeri Chase IRONon 07-24-2022 Iron [Mass/Vol] 197.0 ug/dL Critically high 50.0-170.0 [facility] Comment on above: Performed By: #### I RAOUL #### [facility] [address] [place] [address] Dr. Jeri Chase LIPID PROFILEon 07-24-2022 CHOL-HDL RATIO NORM SEE BELOW Normal [facility] Comment on above: Result Comment: 3.3 - 4.4 LOW RISK 4.4 - 7.1 AVERAGE RISK 7.1 - 11.0 MODERATE RISK >11.0 HIGH RISK Performed By: #### L IPID, CMP, TSH, T7 #### [facility] [address] [place] [address] Dr. Jeri Chase Cholesterol [Mass/Vol] 214 mg/dL Critically high <=200 [facility] Comment on above: Performed By: #### L IPID, CMP, TSH, T7 #### [facility] [address] [address] [address] Jeri Chase Cholesterol in HDL [Mass/Vol] 44 mg/dL Normal 40-60 [facility] Comment on above: Performed By: #### L IPID, CMP, TSH, T7 #### [facility] [address] [address] [address] Jeri Chase Cholesterol in LDL [Mass/Vol] 106.4 mg/dL Normal [facility] Comment on above: Performed By: #### L IPID, CMP, TSH, T7 #### [facility] [address] [address] [address] Jeri Chase Cholesterol.total/Ch olesterol in HDL [Mass ratio] 4.9 {ratio} Normal [facility] Comment on above: Performed By: #### L IPID, CMP, TSH, T7 #### [facility] [address] [address] [address] Jeri Chase HDL NORMAL > or = 60 mg/dl - LO W CARDIOVASCULAR RISK <40 mg/dl - HIGH CARDIOVASCULAR RISK Normal [facility] Comment on above: Performed By: #### L IPID, CMP, TSH, T7 #### [facility] [address] [address] [address] Jeri Chase LDL CALC NORMAL SEE BELOW Normal [facility] Comment on above: Result Comment: <100 mg/dl OPTIMAL 100 - 129 mg/dl NEAR OR ABOVE OPTIMAL 130 - 159 mg/dl BORDERLINE HIGH 160 - 189 mg/dl HIGH >190 mg/dl VERY HIGH Performed By: #### L IPID, CMP, TSH, T7 #### [facility] [address] [address] [address] Jeri Chase Triglyceride [Mass/Vol] 318 mg/dL Critically high <=150 [facility] Comment on above: Performed By: #### L IPID, CMP, TSH, T7 #### [facility] [address] [address] [address] Jeri Chase VLDL CALC 63.6 mg/dL Normal [facility] Comment on above: Performed By: #### L IPID, CMP, TSH, T7 #### [facility] [address] [address] [address] Jeri Chase PROF 14(COMP METB)on 023 Albumin [Mass/Vol] 3.9 g/dL Normal 3.4-5.0 [facility] Comment on above: Performed By: #### L IPID, CMP, TSH, T7 #### [facility] [address] [address] [address] Jeri Chase Albumin/Globulin [Mass ratio] 1.1 {ratio} Normal [facility] Comment on above: Performed By: #### L IPID, CMP, TSH, T7 #### [facility] [address] [address] [address] Jeri Chase ALP [Catalytic activity/Vol] 137 U/L Critically high 46-116 [facility] Comment on above: Performed By: #### L IPID, CMP, TSH, T7 #### [facility] [address] [address] [address] Jeri Chase ALT [Catalytic activity/Vol] 53 U/L Normal 14-59 [facility] Comment on above: Performed By: #### L IPID, CMP, TSH, T7 #### [facility] [address] [address] [address] Jeri Chase Anion gap [Moles/Vol] 10.5 mmol/L Normal [facility] Comment on above: Performed By: #### L IPID, CMP, TSH, T7 #### [facility] [address] [place] [address] Dr. Jeri Chase AST [Catalytic activity/Vol] 27 U/L Normal 15-37 [facility] Comment on above: Performed By: #### L IPID, CMP, TSH, T7 #### [facility] [address] [address] [address] Jeri Chase Bilirubin [Mass/Vol] 0.4 mg/dL Normal 0.2-1.0 [facility] Comment on above: Performed By: #### L IPID, CMP, TSH, T7 #### [facility] [address] [address] [address] Jeri Chase Calcium [Mass/Vol] 8.7 mg/dL Normal 8.5-10.1 [facility] Comment on above: Performed By: #### L IPID, CMP, TSH, T7 #### [facility] [address] [address] [address] Jeri Chase Chloride [Moles/Vol] 106 mmol/L Normal 98-107 [facility] Comment on above: Performed By: #### L IPID, CMP, TSH, T7 #### [facility] [address] [address] [address] Jeri Chase CO2 [Moles/Vol] 30.6 mmol/L Normal 21.0-32.0 [facility] Comment on above: Performed By: #### L IPID, CMP, TSH, T7 #### [facility] [address] [place] [address] Dr. Jeri Chase Creatinine [Mass/Vol] 0.76 mg/dL Normal 0.55-1.02 [facility] Comment on above: Performed By: #### L IPID, CMP, TSH, T7 #### [facility] [address] [address] [address] Jeri Chase EGFR-AF CHADIAN >60 Normal >=60 [facility] Comment on above: Performed By: #### L IPID, CMP, TSH, T7 #### [facility] [address] [place] [address] Dr. Jeri Chase EGFR-NON AF CHADIAN >60 Normal >=60 [facility] Comment on above: Performed By: #### L IPID, CMP, TSH, T7 #### [facility] [address] [place] [address] Dr. Jeri Chase Globulin (S) [Mass/Vol] 3.5 g/dL Normal [facility] Comment on above: Performed By: #### L IPID, CMP, TSH, T7 #### [facility] [address] [place] [address] Dr. Jeri Chase Glucose [Mass/Vol] 102 mg/dL Normal 74-106 [facility] Comment on above: Performed By: #### L IPID, CMP, TSH, T7 #### [facility] [address] [place] [address] Dr. Jeri Chase Potassium [Moles/Vol] 4.1 mmol/L Normal 3.5-5.1 [facility] Comment on above: Performed By: #### L IPID, CMP, TSH, T7 #### [facility] [address] [place] [address] Dr. Jeri Chase Protein [Mass/Vol] 7.4 g/dL Normal 6.4-8.2 [facility] Comment on above: Performed By: #### L IPID, CMP, TSH, T7 #### [facility] [address] [place], [place] [address] Dr. Jeri Chase Sodium [Moles/Vol] 143 mmol/L Normal 136-145 [facility] Comment on above: Performed By: #### L IPID, CMP, TSH, T7 #### [facility] [address] [address] [address] Jeri Chase Urea nitrogen [Mass/Vol] 6.0 mg/dL Critically low 7.0-18.0 [facility] Comment on above: Performed By: #### L IPID, CMP, TSH, T7 #### [facility] [address] [address] [address] Jeri Chase Urea nitrogen/Creatinine [Mass ratio] 7.9 mg/mg Normal [facility] Comment on above: Performed By: #### L IPID, CMP, TSH, T7 #### [facility] [address] [address] [address] Jeri Chase TSHon 07-24-2022 TSH 2.266 uIU/mL Normal 0.358-3.740 [facility] Comment on above: Performed By: #### L IPID, CMP, TSH, T7 #### [facility] [address] [address] [address] Jeri Chase Vital Signs Date Time Vital Sign Value Performing Clinician Carlos varghese 01-27-2024 14:13-0400 Blood Pressure Location Cipriano NILL [facility] 01-27-2024 14:13-0400 Diastolic blood pressure 82 mm[Hg] Cipriano NILL [facility] 01-27-2024 14:13-0400 Heart rate 76 /min Cipriano NILL [facility] 01-27-2024 14:13-0400 Respiratory rate 16 /min Cipriano NILL [facility] 01-27-2024 14:13-0400 Systolic blood pressure 118 mm[Hg] [facility] Date Encounter Type Care Provider Facility Start: 01-27-2024 End: 01-27-2024 ambulatory Cipriano SMALL Facility: [facility] Start: 01-27-2024 End: 01-27-2024 Patient encounter procedure Cipriano SMALL [facility] Start: 12-17-2023 ambulatory Cipriano SMALL Facility:[facility] Start: 07-30-2022 End: 07-31-[address] LINDY ESPINOZA . Facility: Start: 07-24-2022 End: 07-25-[address] LINDY ESPINOZA . Facility: Procedures Date Procedure Procedure Detail Performing Clinician Repair of musculoten dinous cuff of shoulder Cipriano SMALL Total abdominal hyst erectomy with bilateral salpingo-oophorectomy Cipriano SMALL Payers Date Payer Category Payer Unknown [id number] 1960 Unknown [id number] 1955 Unknown [id number] 1955 Unknown [id number] 1955 Unknown [id number] Social History Date Type Detail Facility Start: 01-27-2024 Tobacco smoking status Ex-smoker (fi nding) [facility] Tobacco [facility] status [facility] Sex Assigned At Female [facility] Functional Status Date Assessment Result Facility 01-27-2024 Functional Status N/A [facility] Clinical Note 01-27-2024 Note Date & [...] Leiden mutation: Brother. Hyperlipidemia: Mother. Hypertension: Brother. [facility] Comment on above: Result Comment: Elec tronically Signed By: GEOVANNY FIGUEROA, Cipriano Landaverde\Date and Time Signed: 01/27/24 20:46 EDT Evaluation + Plan note Note Date & Type Note Facility Evaluation + Plan note No data available for this section [facility] Hospital Discharge instructions Note Date & Type Note Facility Hospital Discharge instructions No data available for this section [facility] Progress note Note Date & Type Note Facility Progress note No data available for this section [facility] Summary Purpose Family History No Family History Records Found No data available for this section No Family History Records Found Advance Directives No Advanced Directives Records FoundNo Advanced Directives Records Found Additional Source Comments INFORMATION SOURCE (unrecogn ized section and content) DATE CREATED AUTHOR 10/23/2022 [facility] DATE CREATED AUTHOR AUTHOR'S ORGANIZ ATION 01/29/2024 [facility] Patient Care team informatio n (unrecognized section and content) Personnel Name: Lindy Espinoza MD Address: Address: [address] [place] [address] FOR RECORDS PERTAINING TO PATIENTS WHO ARE [...] BE BASED ON THE PRIMARY CLINICAL RECORDS. [facility] [employer] [facility]. provides no warranty or guarantee of the accuracy or completeness of information in this document.
== END 2024-11-23 09:25 | disposition home or self-care (01) ==
LOC: MAMMO 09:24
PROVIDERS: PCP Family Medicine; Visit Provider Family Medicine
DX: Z12.31 Encounter for screening mammogram for malignant neoplasm of breast (principal); I10 Essential (primary) hypertension
CPT/HCPCS: 77063; 77067

== ENCOUNTER 2024-11-29 08:23 | Outpatient (OUT) | payer MEDICARE, SELFPAY ==
--- OUTSIDE RECORDS SUMMARY | 2024-11-23 05:57 | XMS_ITS ---
Author Organization The [facility] in [place] Address [address] [place] [address] Care Team Providers Care Police Detention Attendant Name Role Phone Marky Connors Primary Care Provider REASON FOR VISIT Cuff- fatty liver Encounters Encounter Location Date Provider Diagnosis [facility] [address] [place] [address] 11/23/2024 Marky Connors Fatty liver disease, nonalcoholic K76.0 Assessments Encounter Date Diagnosis (ICD Code) Assessment Notes Treatment Notes Treatment Clinical Notes Section Notes 11/23/2024 Fatty liver disease, nonalcoholic (ICD-10 - K76.0) Plan Of Treatment Pending Test Test Name Order Date US right upper quadrant 11/23/2024 Progress Notes * Ariane ROGER ADOB:[birth year] (68 yo F)Acc No.[id number]:11/23/2024 Patient: Ariane ISIDRO :1955 A ge:68 Y S ex:Female Address:[address] [place] [address] [place] [address] Subjective: * Chief Complaints: * C uff- fatty liver * Medical History: * Surgical History: * Hospitalization/Major Diagno stic Procedure: * Medications: Objective: * Vitals: * Physical Examination: Assessment: * Assessment: 1. F atty liver disease, nonalcoholic - K76.0 (Primary) Plan: * Treatment: * Procedure Codes: * true * Date: Generated for Bill veloz/Maia/Jhony on: 0 11/29/2024 08:27 AM EDT
--- OUTSIDE RECORDS SUMMARY | 2024-11-23 06:00 | XMS_ITS ---
Author Organization The [facility] in [place] Address [address] [place] [address] Care Team Providers Care Flower Planter Name Role Phone Marky Connors Primary Care Provider REASON FOR VISIT BP CHECK Vital Signs Height 66 in 11/23/2024 Blood pressure systolic 145 mm Hg 11/24/19 25 Blood pressure diastolic 78 mm Hg 025 Encounters Encounter Location Date Provider Diagnosis [facility] [address] [place] [address] 11/23/2024 Marky Connors Plan Of Treatment No Information Progress Notes * Ariane ROGER ADOB:[birth year] (68 yo F)Acc No.[id number]:11/23/2024 UNLOCKED PROGRESS NOTE BP Check Patient: Ariane ISIDRO [facility] Connors [facility] :1955 A ge:68 Y S ex:Female Date:11/23/2024 [facility] [address] [id number] Check In:09:49 AM ESTCheck O ut:09:56 AM EST Subjective: * Chief Complaints: * 1 . BP CHECK. * Medical History: Objective: * Vitals: H t: 66 in, BP:145/78mm Hg, Ht-cm: 167.64 cm. Assessment: Plan: * Treatment: * * Electronic signature of Marky Connors MD, [id number] on 11/29/2024 at 08:28 AM EDT Sign off status: Pending Visit Status: Tashi NEWMAN (Check Out) * Provider: Sanaz Connors ([facility])MD Date: 0 11/23/2024 Generated for Bill veloz/Maia/Parisaitting on: 0 11/29/2024 08:28 AM EDT
--- OUTSIDE RECORDS SUMMARY | 2024-11-23 13:32 | XMS_ITS ---
Author Organization [facility] [place] Address [address] [place] [address] Care Team Providers Care Felt Finishing Supervisor Name Role Phone Marky Connors Primary Care Provider REASON FOR VISIT Mamm results Encounters Encounter Location Date Provider Diagnosis [facility] [address] [place] [address] 11/23/2024 Marky Connors Plan Of Treatment No Information Progress Notes * Ariane FISHMAN ADOB:[birth year] (68 yo F)Acc No.[id number]:11/23/2024 Patient: Jacque GLENNLUIS MANUEL Ariane Angi :1955 A ge:68 Y S ex:Female Address:[address] [place] [id number] * true * Date: Generated for Printi ng/Favidhig/eTransmitting on: 0 11/29/2024 08:27 AM EDT
--- OUTSIDE RECORDS SUMMARY | 2024-11-29 08:27 | XMS_ITS | Clinical Summary ---
Author Organization [facility] Address [address] [place] [address] Care Team Providers Care Mosaic Technician Name Role Phone Unavailable Primary Care Provider [...]
--- NOTE | 2024-11-29 08:28 | US_ITS ---
The [address] [address] Patient Name: JASON ROGER MRN: [id number] date: 1955 Sex: F Assigned Patient Location: [place] Current Patient Location: [place] Accession/Order Number: [id number] Exam Date: 11/29/2024 11:45 Report Date: 11/29/2024 11:48 At the request of: LINDY ESPINOZA MD Procedure: US right upper quadrant LIMITED RIGHT UPPER QUADRANT ABDOMINAL ULTRASOUND CLINICAL HISTORY: Fatty Liver Disease COMPARISON: 10/20/2023 Assessment is slightly limited by intercostal scanning. The gallbladder is physiologically distended without shadowing calculi, wall thickening or pericholecystic fluid. No intra- or extrahepatic biliary dilatation is evident. The common duct measures 3 - 4 mm. The liver shows slight increased echogenicity that may be fatty infiltration. Focal sparing is suspected near the gallbladder fossa. A cyst is present in the right hepatic lobe measuring 14 x 10 x 12 mm. There is appropriate hepatopetal flow within the main portal vein. The pancreas shows no significant sonographic abnormality. Cursory evaluation of the right kidney reveals no hydronephrosis or fluid within Anguiano's pouch. US/US right upper quadrant IMPRESSION: FATTY LIVER WITH SMALL CYST. NO GALLBLADDER PATHOLOGY. Impression dictated by: Amirah Guillermo M.D. 11/29/2024 11:48 AM Dictation Location: [place] [address] Electronically authenticated by: [id number] Y Date: 11/29/2024 11:48
--- OUTSIDE RECORDS SUMMARY | 2024-11-29 08:28 | XMS_ITS | Patient Health Record ---
Author Organization The [facility] in [place] Address [address] [place] [address] Care Team Providers Care Batch Unloader Name Role Phone Marky Espinoza Primary Care Provider Allergies No Known Allergies Results Component Value Reference Range Notes CBC AUTO DIFF Reviewed date:11/20/2024 12:30:28 PM Interpretation: Performing Lab: Notes/Report: [facility] , White Blood Count 5.7 4.0-11.0 [...] 3/uL Performing Lab: see note ML - The [facility] LB CREATININE Reviewed date:03/19/2024 09:49:58 PM Interpretation: Performing Lab: Notes/Report: [facility] , Creatinine 1.04 0.55-1.02 mg/dL Estimated GFR ( Mine >60 >=60 mL/min/1.73m 2 Estimated GFR (Non- Yessi 53 >=60 mL/min/1.73m 2 Performing Lab: see note - [facility] CALCIUM Reviewed date:03/19/2024 09:49:58 PM Interpretation: Performing Lab: Notes/Report: [facility] , Calcium 9.1 8.5-10.1 mg/dL Performing Lab: see note - The [facility] MM tomosynthesis screening B I Reviewed date:11/23/2024 05:33:12 PM Interpretation: Performing Lab: Notes/Report: Source Facility: [address] [address] [place] [address] Mammography Report Signed Patient: JASON ROGER MR#: [id number] : 1955 Acct:[id number] Age/Sex: 68 / F ADM Date: 11/23/24 Loc: MAMMO Attending Dr: Lindy Espinoza M.D. Ordering Physician: Lindy Espinoza M.D. Results: Date of Service: 11/23/24 Follow Up: Procedure(s): MM tomosynthesis screening BI Accession Number(s): [id number] cc: Lindy Espinoza M.D. Patient Name: JASON ROGER MR#: [id number] : 1955 Exam Date: 11/23/2024 Ordering Doctor: DR LINDY ESPINOZA . RADIOLOGY REPORT PROCEDURE: MM TOMOSYNTHESIS SCREENING BI COMPARISON: MG MAMM SCREEN 3D SHERIE CAD, 07/30/2022. MG MAMM SHERIE SCRN W CAD DIG, 12/31/2015. INDICATIONS: Screening Calculator Name NCI Breast Cancer Risk Assessment Tool 5 Year Breast Cancer Risk 1.40% Lifetime Breast Cancer Risk 4.30% Personal Breast Cancer No Personal Ovarian Cancer No Treatments None Family Cancers None LOCATION: [facility] BREAST COMPOSITION: There are scattered areas of fibroglandular density. FINDINGS: DIAGNOSTIC CATEGORY 1--NEGATIVE. RIGHT BREAST: No significant suspicious finding. LEFT BREAST: No significant suspicious finding. RECOMMENDATIONS: ROUTINE MAMMOGRAM AND CLINICAL EVALUATION IN 12 MONTHS. PLEASE NOTE: A NORMAL MAMMOGRAM DOES NOT EXCLUDE THE POSSIBILITY OF BREAST CANCER. A CLINICALLY SUSPICIOUS PALPABLE LUMP SHOULD BE BIOPSIED. Dictated by: Tony Mccall DO on 11/23/2024 at 16:35 Approved by: Tony Mccall DO on 11/23/2024 at 16:35 Dictated By: Tony Mccall M.D. Signed By: 11/23/24 1636 DD/ 163 TD/TT: Division Manager: [place] [address] Mammography Report Signed Patient: JASON ROGER MR#: [id number] : 1955 Acct:[id number] Age/Sex: 68 / F ADM Date: 11/23/24 Loc: MAMMO Attending Dr: Tristen Espinoza M.D. Ordering Physician: Lindy Espinoza M.D. Results: Date of Service: 11/23/24 Follow Up: Procedure(s): MM tomosynthesis screening BI Accession Number(s): [id number] cc: Lindy Espinoza M.D. Patient Name: JASON ROGER MR#: [id number] : 1955 Exam Date: 11/23/2024 Ordering Doctor: DR LINDY ESPINOZA . RADIOLOGY REPORT PROCEDURE: MM TOMOSYNTHESIS SCREENING BI COMPARISON: MG MAMM SCREEN 3D SHERIE CAD, 07/30/2022. MG MAMM SHERIE SCRN W CAD DIG, 12/31/2015. INDICATIONS: Screening Calculator Name NCI Breast Cancer Risk Assessment Tool 5 Year Breast Cancer Risk 1.40% Lifetime Breast Canc er Risk 4.30% Personal Breast Canc er No Personal Ovarian Cancer No Treatments None Family Cancers None LOCATION: [facility] BREAST COMPOSITION: There are scattered areas of fibroglandular density. FINDINGS: DIAGNOSTIC CATEGORY 1--NEGATIVE. RIGHT BREAST: No significant suspicious finding. LEFT BREAST: No significant suspicious finding. RECOMMENDATIONS: ROUTINE MAMMOGRAM AN D CLINICAL EVALUATION IN 12 MONTHS. PLEASE NOTE: A MAURO L MAMMOGRAM DOES NOT EXCLUDE THE POSSIBILITY OF BREAST CANCER. A CLINICALLY SUSPICIOUS PALPABLE LUMP SHOULD BE BIOPSIED. Dictated by: Tony Mccall DO on 11/23/2024 at 16:35 Approved by: Tony Mccall DO on 11/23/2024 at 16:35 Dictated By: Tony Mccall M.D. Signed By: 11/23/24 1636 DD/ 34 TD/TT: Division Manager: [facility] [address] [place] Reviewed date:11/20/2024 12:30:28 PM Interpretation: Performing Lab: Notes/Report: [facility] , Vitamin D 86.5 30-100 ng/mL Vit D sufficient >100 ng/mL Potential Toxicity 20-<30 ng/mL Vit D insufficient <20 ng/mL Vit D deficient Performing Lab: see note ML - [facility] LB TSH Reviewed date:11/20/2024 12:30:28 PM Interpretation: Performing Lab: Notes/Report: [facility] , Thyroid Stimulating Hormone 1.738 0.358-3.740 uIU/mL Performing Lab: see note ML - [facility] LB T4 Reviewed date:11/20/2024 12:30:28 PM Interpretation: Performing Lab: Notes/Report: [facility] , T4 Thyroxine 9.10 4.80-13.90 ug/dL Performing Lab: see note - [facility] LB PROF 14(COMP METB) Reviewed date:11/20/2024 12:30:28 PM Interpretation: Performing Lab: Notes/Report: [facility] , Sodium 143 136-145 mmol/L Potassium [...] Globulin Ratio 1.1 Performing Lab: see note [facility] LIPID PROFILE Reviewed date:11/20/2024 12:30:28 PM Interpretation: Performing Lab: Notes/Report: [facility] , Triglycerides 133 <=150 mg/dL Cholesterol [...] >11.0 HIGH RISK Performing Lab: see note ML - [facility] IRON Reviewed date:11/20/2024 12:30:28 PM Interpretation: Performing Lab: Notes/Report: [facility] , Iron 155.0 50.0-170.0 ug/dL Performing Lab: see note - [facility] INSULIN Reviewed date:11/20/2024 12:30:28 PM Interpretation: Performing Lab: Notes/Report: [facility] , Insulin 23.8 2.6-24.9 uIU/mL [address] [place], [place] [id number] Embroidery Worker: Ramos Raygoza PhD, Phone: [phone] Performed at: CB - [facility] [place] Performing Lab: see note LC - [facility] LB GLYCOHEMOGLOBIN A1C Reviewed date:11/20/2024 12:30:28 PM Interpretation: Performing Lab: Notes/Report: [facility] , Glycohemoglobin A1C 5.3 4.5-6.2 % ADA THERAPEUTIC TARGET < 7.0 > 7.0 ADA RECOMMENDED LIMIT 4.0 - 6.0 ACTION SUGGESTED Estimated Average Glucose 105 Performing Lab: see note ML - [facility] FREE T3 Reviewed date:11/20/2024 12:30:28 PM Interpretation: Performing Lab: Notes/Report: [facility] , Free T3 2.67 2.18-3.98 pg/mL Performing Lab: see note ML - [facility] Reason For Referral Diagnosis 1 Nevus (D22.9) Referral Organization [facility] Referring Provider First Name Marky Referring Provider Last Name Dory Referring Provider [facility] Zafar urias Referred Provider Cipriano Butler Referred Provider Specialty General Surg leonora Referral Priority Routine Reason ear Diagnosis 1 Nevus (D22.9) Referral Organization [facility] Referring Provider First Name Marky Referring Provider Last Name Dory Referring Provider [facility] adonay Referred Provider Cipriano Butler Referred Provider [...] Administration Date Status Comme nts Flu, Fluad (35787) 65 yrs+, single-dose syringe (2929-6519) IM Intramuscular 03/24/2023 Administered Social History Tobacco [...] Status Risk Notes Problem Primary thrombophili a (977886375) Other primary thrombophilia (D68.59) Active confirmed Problem 30113148 Age-related osteoporosis without current pathological fracture (M81.0) Active confirmed Problem 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 Problem Hypertension (95473134) Hypertension (I10) Active confirmed Problem Carpal tunnel syndro me (57980929) Carpal tunnel syndrome (G56.00) Active confirmed Problem Anxiety (21106778) Anxiety (F41.9) Active confi rmed Problem Depression (548858908) Depressio n (F32.9) Active confirmed Problem Osteopenia (455071754) Osteopeni a (M85.80) Active confirmed Problem Elevated liver enzym es level (077767826) Elevated liver enzymes (R74.8) Active confirmed Problem Diverticulitis (40978441) Diverticulitis (K57.92) Active confirmed Problem Bone density finding (041089069) Oth disrd of bone density and structure, unspecified site (M85.80) Active confirmed Problem Nevus (1850829608) Nevus (D22.9) Active confirm ed Problem Factor 5 Leiden mutation (885691842) Factor V Leiden (D68.51) Active confirmed Problem Fatty liver (797502508) Fatty liver disease, nonalcoholic (K76.0) Active confirmed Problem Migraine (57010079) Headache, migraine (G43.909) Active confirmed Problem Pure hypercholesterolemia (514911401) Elevated cholesterol (E78.00) Active confirmed Problem Mixed anxiety and depressive disorder (327093133) Anxiety and depression (F41.8) Active confirmed Problem Insomnia (537162184) Complaint o f insomnia (G47.00) Active confirmed Problem Disease caused by Severe acute respiratory syndrome coronavirus 2 (disorder) (257092156) COVID (U07.1) Active confirmed Problem Acute left-sided low back pain, unspecified whether sciatica present (M54.50) Active confirmed Vital Signs Blood pressure diastolic 78 mm Hg 11/23/2024 Height 66 in 11/23/2024 Blood pressure systolic 145 mm Hg 11/23/2024 Weight 170.8 lbs 11/18/2024 BMI 27.56 kg/m2 11/18/2024 Encounters Encounter Location Date Provider Diagnosis [address] [place] [address] 12/16/2023 Marky Espinoza Nevus D22.9 ; Fatty liver disease, nonalcoholic K76.0 and Anxiety F41.9 [address] [place] [address] 11/18/2024 Marky Espinoza Hypertension I10 ; Depression F32.9 ; Elevated liver enzymes R74.8 ; Fatty liver disease, nonalcoholic K76.0 ; Elevated cholesterol E78.00 and Nevus D22.9 [address] [place] [address] 11/23/[address] [facility] [address] [place] [facility] [place] [address] 01/21/[address] [facility] [address] [place] [facility] [place] [address] 01/29/[address] [facility] [address] [place] [facility] [place] [address] 02/03/2024 Marky Espinoza Depression F32.9 [facility] [address] [facility] [address] 02/19/2024 Marky Espinoza [facility] [address] [facility] [address] [facility] [place] [address] 05/18/[address] [facility] [address] [place] [facility] [place] [address] 07/25/[address] [facility] [address] [place] [facility] [place] [address] 08/01/[address] [facility] [address] [place] [facility] [place] [address] 08/16/[address] [facility] [address] [place] [facility] [place] [address] 11/18/2024 Marky Espinoza Osteopenia M85.80 [facility] [address] [place] [facility] [place] [address] 11/20/2024 Marky Espinoza [facility] [address] [facility] [address] [facility] [place] [address] 11/22/[address] [facility] [address] [place] [facility] [place] [address] 11/23/2024 Marky Espinoza Fatty liver disease, nonalcoholic K76.0 [facility] [address] [place] [facility] [place] [address] 11/23/2024 Marky Espinoza Assessments Encounter Date Diagnosis (ICD Code) Assessment Notes Treatment Notes Treatment Clinical Notes Section Notes 12/16/2023 Nevus (ICD-10 - D22.9) 12/16/2023 Fatty liver disease, nonalcoholic (ICD-10 - K76.0) 11/18/2024 Hypertension (ICD-10 - I10) 11/18/2024 Depression (ICD-10 - F32.9) 02/03/2024 Depression (ICD-10 - F32.9) 11/18/2024 Osteopenia (ICD-10 - M85.80) 11/23/2024 Fatty liver disease, nonalcoholic (ICD-10 - K76.0) 11/18/2024 Elevated liver enzymes (ICD-10 - R74.8) 12/16/2023 Anxiety (ICD-10 - F41.9) 11/18/2024 Fatty liver disease, nonalcoholic (ICD-10 - K76.0) 11/18/2024 Elevated cholesterol (ICD-10 - E78.00) 11/18/2024 Nevus (ICD-10 - D22.9) Plan Of Treatment Pending Test Test Name Order Date CMP (COMPLETE METABOLIC PANEL) 4 HEMOGLOBIN A1C (GLYCO) 11/18/2024 IRON, TOTAL 11/18/2024 [...] T3) 5 MM screening mammo BI 11/18/2024 US right upper quadrant 11/23/2024 MM diagnostic mammo BI 11/18/2024 Vitamin D 09/22/2023 Vitamin D 10/07/2023 Lipid Panel 10/07/2023 Creatinine 08/14/2023 CMP (COMP MET RIZZO) w/eGFR CKD-EPI 2024 CBC WITH DIFF 11/18/2024 Insurance Providers Payer Name Payer Address Payer Phone Subscriber Number Group Number Insured Name Patient Relationship to Insured Coverage Start Date Coverage End Date [employer] ADV PLAN [address] [place] [phone] [id number] Jason Garcia Self - patient is the insured Medical (General) History Medical History History ICD Code COVID CARPAL TUNNEL OSTEOPENIA DIVERTICULITIS FACTOR V LEIDEN HYPERCHOLESTEROLEMIA ANXIETY / DEPRESSION INSOMNIA MIGRAINE H/A Surgical History Surgery Date(Month/Year) GEOVANNI and BSO ROTATOR CUFF REPAIR 05/2009
== END 2024-11-29 08:24 | disposition home or self-care (01) ==
LOC: US 08:23
PROVIDERS: PCP Family Medicine; Visit Provider Family Medicine
DX: K76.0 Fatty (change of) liver, not elsewhere classified (principal); M85.88 Other specified disorders of bone density and structure, other site; M85.80 Other specified disorders of bone density and structure, unspecified site
CPT/HCPCS: 76705; 77080

== ENCOUNTER 2025-02-03 10:03 | Outpatient (RCR) | payer MEDICARE, SELFPAY ==
[2025-02-03 10:12] LABS: Calcium 8.5 mg/dL (8.5-10.1); Estimated GFR (African America >60 (>=60 mL/min/1.73m^2); Estimated GFR (Non-African Ame 52 (>=60 mL/min/1.73m^2)
[2025-02-03 10:22] VITALS: BP 132/77; PULSE 60; TEMP 36.5; O2SAT 96
[2025-02-03] MEDS: DENOSUMAB 60 MG/ML SYRINGE SUBQ (10:31)
== END 2025-02-04 23:59 | disposition home or self-care (01) ==
LOC: LAB 10:03
PROVIDERS: PCP Family Medicine; Visit Provider Family Medicine
DX: M81.0 Age-related osteoporosis without current pathological fracture (principal)
CPT/HCPCS: 36415; 82310; 82565; 96372; J0897